=== PATIENT | female | born 1935 | race Caucasian/White ===

== ENCOUNTER → 2016-11-15 | Outpatient (CLI) | payer MEDICARE ==
[~2016-11-15] MED LIST: ACET1TAB17 PO; AMBI10TA PO; AMLO10TA2 PO; DARB10SYRN IV; DULC100C PO; EMLA2.5C TOP; ENAL10TA2 PO; ENAL20TA PO; ENAL5TAB PO; EPOG3000 IV; FLEXERIL PO; HYDR-3719 PO; KLOR1TAB73 PO; LACT10SO29 PO; LISI10TA4 PO; MEGA40SU PO; METO1TAB7 PO; MIRA3350 PO; NEPHTAB PO; NORCOTAB PO; NORV5TAB PO; PANT40TA2 PO; PRED5PAK PO; PROG1CAP2 PO; RENV2TAB PO; RIBA200T2 PO; ROZE8TAB16 PO; TORS20TA2 PO; TUMS500C PO; TYLE167L PO; VANC25SOL IV; VASO5TAB11 PO; VITA100067 PO; VITA2000 PO; VITA20008 PO; ZANTTAB9 PO; [UNRECOGNIZED DRUG - CODE] PO
--- NOTE | 2016-11-15 11:30 | REP ---
Clinical: Shortness of breath. Pleural effusions. Technique: PA and lateral. Comparison: 03/06/2016. Findings: Moderate bilateral pleural effusions with bibasilar infiltrates are appreciated. Chronic and postsurgical changes noted. Skeletal structures demonstrate osteopenia and degenerative changes. Impression: Moderate bilateral pleural effusions and bibasilar infiltrates. Signed by Nick Saez MD 11/15/2016 11:22 A
== END ==
LOC: M SMT 10:58
PROVIDERS: ATTEND Internal Medicine Nephrology
DX: J90 Pleural effusion, not elsewhere classified (principal)

== ENCOUNTER → 2016-11-22 | Outpatient (CLI) | payer MEDICARE ==
--- NOTE | 2016-11-22 17:06 | REP ---
Chest x-ray: Two views. History: Status post ultrasound-guided right thoracentesis. Comparison study: 11/15/2016. Findings: The right pleural effusion has been much improved post thoracentesis. There is no evidence of pneumothorax or other complication. A small to moderate left-sided pleural effusion is again seen essentially unchanged from the 11/15/2016 study. Cardiomegaly is observed. Post thoracotomy sutures are seen on the right and there is a vascular stent in the distribution of the brachial cephalic vein. An old healed proximal humeral fracture is seen Impression: No evidence of pneumothorax or other complication. Status post right thoracentesis Signed by Alfredo Espino MD 11/25/2016 10:47 A
--- NOTE | 2016-11-22 17:11 | REP ---
RIGHT THORACENTESIS: Procedure was performed by JO Klein under the direct supervision of Dr. Espino. The procedure along with its risks, benefits, and complications were discussed with the patient prior to the procedure. Informed consent was obtained both verbally and written. Procedural "time out" was performed in order to ensure the correct patient, procedure, and site. The right lung was prepped and draped in the usual sterile fashion. 3 mL of 1% Lidocaine were used for local anesthesia. Skin knick was made at the area of anesthesia. A centesis catheter was advanced into the pleural space under continuous negative pressure until serous fluid was aspirated. The needle was removed and the catheter was advanced. Approximately 620 mL of yellow fluid were removed. The catheter was then removed, hemostasis was achieved and a soft dressing was applied to the site. Post-procedural imaging revealed no immediate complications and a significant decrease in residual fluid within the lung. The patient will remain in interventional for 2 hours of post procedural observation and as long as her vital signs are stable will be discharged home. Reviewed by JO Ngo 11/25/2016 10:17 AEdited and Signed by Alfredo Espino MD 11/25/2016 10:47 A
[2016-11-22 20:07] LABS: RBC PLEURAL FLUID < 10 (<10mm3 cells/uL); TNC PLEURAL FLUID 935 cells/uL (0-20)
[2016-11-22 20:11] LABS: BF DIFF IF INDICATED? YES (NO)
[2016-11-22 20:25] LABS: TOTAL PROTEIN, BODY FLUID 3.1 G/DL (NOT ESTABLISHED)
[2016-11-22 21:35] LABS: CC BF DIFF EXAM CYTOCENTRIFUGE
== END | disposition home or self-care (01) ==
LOC: M RADPRO 14:49
PROVIDERS: ATTEND Internal Medicine Nephrology
DX: J90 Pleural effusion, not elsewhere classified (principal); N18.6 End stage renal disease; I15.0 Renovascular hypertension; E83.119 Hemochromatosis, unspecified; D64.9 Anemia, unspecified; M81.0 Age-related osteoporosis without current pathological fracture; Z79.891 Long term (current) use of opiate analgesic; Z79.899 Other long term (current) drug therapy; Z99.81 Dependence on supplemental oxygen; Z99.2 Dependence on renal dialysis

== ENCOUNTER → 2016-11-29 | Outpatient (CLI) | payer MEDICARE ==
[2016-11-29 12:11] LABS: RBC PLEURAL FLUID 15 (<10mm3 cells/uL); TNC PLEURAL FLUID 534 cells/uL (0-20)
--- NOTE | 2016-11-29 12:12 | REP ---
TWO VIEW CHEST: Two views of the chest are performed status post left thoracentesis. There is no pneumothorax. There is significant decrease in left pleural fluid with mild residual. Mild left basilar atelectasis is seen. Pleural and parenchymal opacities in the right inferior thorax are unchanged. The remainder of the study is also unchanged. IMPRESSION: Significant improvement of left pleural effusion with mild residual. No pneumothorax, status post left thoracentesis. No change in the appearance of the right lung. Signed by Jaguar Murillo MD 11/29/2016 05:24 P
[2016-11-29 12:14] LABS: BF DIFF IF INDICATED? YES (NO)
[2016-11-29 13:30] LABS: CC BF DIFF EXAM CYTOCENTRIFUGE
--- NOTE | 2016-11-29 20:46 | REP ---
ULTRASOUND GUIDED LEFT THORACENTESIS: The procedure was performed under the direct supervision of Dr. Murillo. The risks and benefits of the procedure were explained to the patient and informed consent was obtained. The left pleural effusion was localized using ultrasound guidance. The skin was prepped and draped in a sterile fashion. 1% Lidocaine was used as a local anesthetic. An 8-Occitan [id number] catheter was inserted using trocar technique. 920 mL of light red colored fluid was withdrawn and sent to the lab. The patient tolerated the procedure well and there were no immediate complications. After the appropriate amount of monitored convalesce the patient was discharged from the department. Reviewed by JO Lo 12/02/2016 04:37 PEdited and Signed by Jaguar Murillo MD 12/02/2016 04:42 P
== END | disposition home or self-care (01) ==
LOC: M RADPRO 10:26
PROVIDERS: ATTEND Internal Medicine Nephrology
DX: J90 Pleural effusion, not elsewhere classified (principal); N18.6 End stage renal disease; R06.02 Shortness of breath; Z79.899 Other long term (current) drug therapy
CPT/HCPCS: 32555; 82465; 82945; 83986; 84157; 87070; 87205; 89051; G0463

== ENCOUNTER 2016-12-22 09:53 | Inpatient (IN) | payer MEDICARE ==
[~2016-12-22] VITALS: Ht 152.4 cm; Wt 37.5 kg
[~2016-12-22 09:53] MED LIST changes: -LISI10TA4 PO; -MEGA40SU PO; -METO1TAB7 PO; -PANT40TA2 PO; -VITA100067 PO
[2016-12-22] MEDS ORDERED: VITA100067 PO (10:02)
[2016-12-22 11:08] LABS: ADD MORPHOLOGY? YES; BASO % 0.5 % (0.0-1.0); EOS # 0.1 K/mm3 (0.0-0.50); EOS % 1.1 % (0.0-3.0); LARGE UNSTAINED CELL # 0.1 K/mm3 (0.0-0.4); LARGE UNSTAINED CELL % 1.5 % (0.0-4.0); LYMPH # 1.4 K/mm3 (1.5-4.5); LYMPH % 24.4 % (24.0-44.0); MEAN CORPUSCULAR HEMOGLOBIN 27.5 pg (27.0-33.0); MEAN CORPUSCULAR HGB CONC 29.6 g/dl (32.0-36.5); MEAN CORPUSCULAR VOLUME 92.8 fl (80.0-96.0); MONO # 0.2 K/mm3 (0.0-0.8); MONO % 4.5 % (0.0-5.0); NEUTROPHILS # 3.6 K/mm3 (1.8-7.7); NEUTROPHILS % 68.1 % (36.0-66.0); PLATELET COUNT, AUTOMATED 164 k/mm3 (150-450); RED CELL DISTRIBUTION WIDTH 19.9 % (11.5-14.5); WHITE BLOOD COUNT 5.3 K/mm3 (4.0-10.0)
[2016-12-22 11:35] LABS: CALCIUM LEVEL 8.4 MG/DL (8.8-10.2); CREATININE FOR GFR 3.19 MG/DL (0.55-1.02); GLOMERULAR FILTRATION RATE 14.9 (>32); POTASSIUM SERUM 4.4 MEQ/L (3.5-5.1)
[2016-12-22 11:44] LABS: ANISOCYTOSIS 2+; HYPOCHROMASIA 2+; POLYCHROMASIA 1+
[2016-12-22] MEDS ORDERED: MEGA40SU PO (12:07)
[2016-12-22] MEDS ORDERED: PANT40TA2 PO (12:07)
[2016-12-22] MEDS ORDERED: LISI10TA4 PO (12:07)
[2016-12-22] MEDS ORDERED: METO1TAB7 PO (12:07)
[2016-12-22] MEDS ORDERED: DEXTROSE 50% 50 ML SYRINGE IV STA (12:18)
[2016-12-22] MEDS ORDERED: DEXTROSE 50% 50 ML SYRINGE As Ordered ONE (12:19)
--- NOTE | 2016-12-22 13:12 | REP ---
AP PORTABLE CHEST: 12/22/2016. Clinical history: Dyspnea, cough. Comparison: Chest x-ray 11/29/2016, 11/22/2016, 11/15/2016. Findings: AP portable chest shows cardiomegaly with left atrial and ventricular enlargement. There are bilateral effusions, larger left than right. The right may have loculations and fluid in the major fissure. Effusion at the left base could obscure infiltrate. There is compressive atelectatic change related to the effusion. There is vascular congestion with some interstitial edema suggested. Old post-traumatic changes from the surgical neck fracture of the right humerus are again seen. Tortuous ectatic calcified aorta as before. A vascular stent in the upper chest midline is again seen. Postoperative changes also noted in the right hemithorax unchanged from previous study. Impression: 1. Cardiomegaly with left atrial and ventricular enlargement, vascular redistribution, interstitial edema with bilateral pleural effusions, left greater than right. Compressive atelectasis in the bases noted. Superimposed infiltrates difficult to exclude. Signed by Nicolas Nielson MD 12/22/2016 06:08 P
[2016-12-22] MEDS ORDERED: LACTULOSE 20 GM/30 ML SYRUP UD PO PRN (14:00)
[2016-12-22] MEDS ORDERED: ONDANSETRON 4 MG TAB (S0181) PO PRN (14:00)
[2016-12-22] MEDS ORDERED: MEGESTROL SUSP 400 MG/10 ML UDC PO PRN (14:00)
[2016-12-22] MEDS ORDERED: ACETAMINOPHEN TAB 650MG DOSE (2X325MG) PO PRN (14:00)
[2016-12-22] MEDS ORDERED: ONDANSETRON 4MG/2ML VIAL (J2405) IV PRN (14:00)
--- NOTE | 2016-12-22 14:37 | HPEPDOC ---
Medical History and Physical Date of Admission Dec 22, 2016 at 13:49 History and Physical HISTORY AND PHYSICAL Date of admission: 12/22/2016 PCP: Dr. Valadez Chief complaint: Shortness of breath and hypoxemia HPI: 81-year-old female with end-stage renal disease on hemodialysis, hypertension, chronic hepatitis C, osteoporosis, rheumatoid arthritis, hemochromatosis, chronic diastolic dysfunction, moderately severe pulmonary hypertension who presents to the emergency department with cough, shortness of breath, and desaturations. Her reports that they winter in [place], that she had a very tough year this past winter. He states that she had her right hip revised in [place] in April, and then in July, she had an episode where clinically she appeared to have had a stroke, but they did not see any evidence of stroke on imaging. He states that after that, she required a lot of rehabilitation, and is now wheelchair bound, where prior to this she was able to walk around with a walker. He states that she got out of rehabilitation in August, but then in October, she fell out of bed and cracked her head open and required shanika to close it. They then remained in [place] while her finished chemotherapy for his own lung cancer. They returned to the [facility] around November 19, and she has had [facility] since then. He states that a couple days ago, she started coughing, and today she told him that she could not breathe. He said that she chronically wears 2 L of oxygen at home, and when he checked her saturations they were only 90-91, and he states they're usually closer to 95. They called Dr. Moss, who was the on-call physician, and she recommended that they come to the emergency room. The patient initially did not want to come, so the turned her oxygen up to 3 L, but he was eventually able to convince her to come to the emergency department. In the ER, they noticed that she has pleural effusions bilaterally. The states that this has become an issue more recently, and she had to have them drained in [place] in October, and then again here on November 29. He states that she has not missed any dialysis appointments, but he does note that she did not receive her morning blood pressure medications today. Past medical history: 81-year-old female with end-stage renal disease on hemodialysis, hypertension, chronic hepatitis C, osteoporosis, rheumatoid arthritis, hemochromatosis, chronic diastolic dysfunction, moderately severe pulmonary hypertension, recurrent pleural effusion, chronic right lower extremity edema Past surgical history: Renal transplant, left arm fistula, BTL, tonsillectomy, left SOTERO, right femur fracture status post pinning with revision in April 2016 Family history: Lymphoma, hypertension, diabetes mellitus Social history: The patient is currently and lives with her . They winter in [place], but lives in [place] when they are up here. 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 Allergies: Pregabalin Review of systems: General: Positive for chills, negative for fever Eyes: Negative for vision changes ENT: Negative for sore throat and nose bleed Cardiovascular: Negative for chest pain Respiratory: Positive for cough and shortness of breath GI: Negative for nausea, vomiting, diarrhea, constipation Musculoskeletal: Negative for neck and back pain Skin: Negative for rash Neuro: Negative for headaches, dizziness, numbness, tingling Psych: Positive for depression and suicidal ideation, however the patient denies any specific plan Endocrine: Positive for chronic anuria Heme: Positive for bruising, negative for bleeding Home meds: See below Physical exam: Vital signs: Vital Sign - Last 24 Hours 12/22/16 12/22/16 12/22/16 12/22/16 09:53 10:29 10:53 11:06 Temp 97.5 Pulse 86 80 Resp 18 B/P (MAP) 174/92 (119) 171/95 (120) Pulse Ox 90 97 O2 Delivery Nasal Cannula O2 Flow Rate 3.0 12/22/16 12/22/16 12/22/16 12/22/16 11:08 11:21 11:23 11:36 Pulse 82 78 B/P (MAP) 159/99 (119) 168/90 (116) Pulse Ox 97 99 12/22/16 12/22/16 12/22/16 12/22/16 11:38 11:51 11:53 12:06 Pulse 78 76 B/P (MAP) 169/98 (121) 167/102 (123) Pulse Ox 98 98 12/22/16 12/22/16 12/22/16 12/22/16 12:08 12:21 12:23 12:36 Pulse 88 82 B/P (MAP) 162/87 (112) 186/101 (129) Pulse Ox 98 99 812/22/16 12/22/16 12:38 12:51 12:53 Pulse 86 80 B/P (MAP) 198/104 (135) Pulse Ox 93 97 Gen.: asleep and appears listless at first but when you speak to her, she easily arouses and answers all questions approprioately, acute distress, cachectic Eyes: Extraocular movements intact, normal sclera ENT: Moist mucous membranes Cardiovascular: RRR, no murmurs rubs or gallops Lungs: clear to auscultation in the apices anteriorly but diminished at bases Abdomen: Soft, NT/ND, normal BS Extremities: No peripheral edema of LLE, 2+ edema of RLE, very TTP Neuro: alert and oriented 3, normal speech, no focal deficits Psych: Normal mood with congruent affect Labs and radiology: See below BMP is unremarkable other then being consistent with chronic renal failure Hemoglobin 10.9 Chest x-ray shows bilateral pleural effusions, left greater than right, and is unable to exclude superimposed infiltrates Assessment and plan: 81-year-old female with end-stage renal disease on hemodialysis, hypertension, chronic hepatitis C, osteoporosis, rheumatoid arthritis, hemochromatosis, chronic diastolic dysfunction, moderately severe pulmonary hypertension who presents to the emergency department with cough, shortness of breath, and desaturations. She is admitted with recurrent bilateral pleural effusions. 1. Recurrent bilateral pleural effusions: The patient has had these drained in both October and November. At this time, we will consult Dr. Armijo, for evaluation of potential Pleurx catheter. Patient is currently stable on 3 L of oxygen. 2. Shortness of breath, cough, hypoxemia: I think this is all secondary to her bilateral pleural effusions. Although the chest x-ray states that they cannot exclude superimposed infiltrate, she has a normal white count and is afebrile. 3. Accelerated hypertension: tells me that the patient has missed all of her morning medications. He states that her blood pressure is usually very controlled. We will give the first dose now of her home medications and resume her on her normal schedule. Continue home Norvasc, NERI inhibitor, beta brain. 4. End-stage renal disease on hemodialysis: We appreciate the help of Dr. Dang with continuing her dialysis. Continue home Renvela. 5. Depression and suicidal ideation: The patient tells me that she is depressed and has even considered ending her own life. However, she states that she does not have any specific plan. I have spoken to Dr. Gamez of psychiatry, who has agreed to see her in consultation. 6. Chronic hepatitis C: The patient follows with Dr. Penn for this. states that she has received the medication for cure, but they have not been repeat testing to see if it worked. Continue home lactulose. 7. Chronic diastolic CHF: As the patient no longer makes any urine, this is currently managed by dialysis. Last echo was October 2015 and showed diastolic dysfunction as well as moderately severe pulmonary hypertension, moderately severe tricuspid regurg, moderately severe mitral regurg. 8. Chronic anemia: Related to end-stage renal disease: Baseline hemoglobin appears to be 9-10s. She is currently at baseline. DVT prophylaxis: Heparin Dispo: admit as inpatient to the service of Dr. Jackson. Per the , he would like to try to keep caring for her in the home, but he states that he currently needs more help. We will consult patient family services. CODE STATUS: Full code Vital Signs Vital Signs Date Time Temp Pulse Resp B/P (MAP) Pulse Ox O2 Delivery O2 Flow Rate FiO2 12/22/16 12:53 80 97 12/22/16 12:51 198/104 (135) 12/22/16 09:53 97.5 18 Nasal Cannula 3.0 Laboratory Data Labs 24H Laboratory Tests 2 12/22/16 10:57: White Blood Count 5.3, Red Blood Count 3.96L, Hemoglobin 10.9L, Hematocrit 36.8 , Mean Corpuscular Volume 92.8, Mean Corpuscular Hemoglobin 27.5, Mean Corpuscular Hemoglobin Concent 29.6L, Red Cell Distribution Width 19.9H, Platelet Count 164, Neutrophils (%) (Auto) 68.1H, Lymphocytes (%) (Auto) 24.4, Monocytes (%) (Auto) 4.5, Eosinophils (%) (Auto) 1.1, Basophils (%) (Auto) 0.5, Neutrophils # (Auto) 3.6, Lymphocytes # (Auto) 1.4L, Monocytes # (Auto) 0.2, Eosinophils # (Auto) 0.1, Basophils # (Auto) 0.0, Large Unclassified Cells % 1.5 , Large Unclassified Cells # 0.1, Platelet Estimate NORMAL, Polychromasia 1+, Hypochromasia 2+, Anisocytosis 2+, Macrocytosis 1+, Anion Gap 9, Glomerular Filtration Rate 14.9L, Blood Urea Nitrogen 31H, Creatinine 3.19H, Sodium Level 139, Potassium Level 4.4, Chloride Level 101, Carbon Dioxide Level 29, Calcium Level 8.4L, Total Creatine Kinase 39, Creatine Kinase MB 1.8, Creatine Kinase MB Relative Index 4.61H, Troponin I 0.09 12/22/16 12:48: Bedside Glucose (Misc Panel) 84 CBC/BMP Laboratory Tests 12/22/16 10:57 Red Blood Count 3.96 L, Mean Corpuscular Volume 92.8, Mean Corpuscular Hemoglobin 27.5, Mean Corpuscular Hemoglobin Concent 29.6 L, Red Cell Distribution Width 19.9 H, Neutrophils (%) (Auto) 68.1 H, Lymphocytes (%) (Auto ) 24.4, Monocytes (%) (Auto) 4.5, Eosinophils (%) (Auto) 1.1, Basophils (%) ( Auto) 0.5, Neutrophils # (Auto) 3.6, Lymphocytes # (Auto) 1.4 L, Monocytes # ( Auto) 0.2, Eosinophils # (Auto) 0.1, Basophils # (Auto) 0.0, Calcium Level 8.4 L , Total Creatine Kinase 39 Home Medications Scheduled Amlodipine Besylate (Amlodipine Besylate) 10 Mg Tab, 10 MG PO DAILY Lisinopril (Lisinopril) 10 Mg Tab, 10 MG PO BID Metoprolol Succinate (Metoprolol Succinate ER) 50 Mg Tab, 50 MG PO DAILY Pantoprazole Sodium (Pantoprazole Sodium) 40 Mg Tab, 40 MG PO QHS Sevelamer Carbonate (Renvela) 800 Mg Tab, 1,600 MG PO WM Vitamin D (Vitamin D) 1,000 Unit Cap, 1,000 UNIT PO DAILY Scheduled PRN Acetaminophen/Hydrocodone (Hydrocodone/Acetaminophen 10-325 mg) 1 Tab Tab, 1 TAB PO Q4H PRN for PAIN Lactulose (Lactulose) 10 Gm/15 Ml Mary, 10 ML PO DAILY PRN for CONSTIPATION Megestrol Acetate (Megace Oral) 40 Mg/Ml Ivana, 400 MG PO DAILY PRN for APPETITE Zolpidem Tartrate (Ambien) 10 Mg Tab, 10 MG PO QHS PRN for INSOMNIA Allergies Coded Allergies: Pregabalin (Unverified Allergy, Unknown, TREMORS, 03/06/16) NANCY JACKSON Dec 22, 2016 14:37
[2016-12-22] MEDS: amLODIPine 10 MG TAB PO SCH (14:39)
[2016-12-22] MEDS: METOPROLOL SUCC (TopROL XL) 50MG **XL** TAB PO SCH (14:40)
[2016-12-22] MEDS: LISINOPRIL 10 MG TAB PO SCH ×2 (14:40→22:02)
[2016-12-22] MEDS ORDERED: LABETALOL HCL 100 MG/20 ML VIAL IV SCH ×2 (15:00→17:38)
--- NOTE | 2016-12-22 15:44 | CR ---
DATE OF CONSULTATION: 12/22/2016 REQUESTING PHYSICIAN: Dr. Brigette Jackson CONSULTING PHYSICIAN: Elizabeth Dang MD REASON FOR CONSULTATION: Management of end-stage renal disease, hemodialysis, and volume overload. CHIEF COMPLAINT: The patient presented to the emergency room with worsening shortness of breath and lower extremity edema. HISTORY OF PRESENT ILLNESS: Kiana Hi is an 81-year-old female with past medical history of end-stage renal disease on hemodialysis Friday, history of recurrent left-sided pleural effusion requiring pleural tap, multiple other comorbidities as mentioned below. The patient presented to the emergency room with worsening shortness of breath and lower extremity edema. The patient was dialyzed yesterday according to her regular schedule, but she reported that despite dialysis, her shortness of breath is not better. Initial evaluation in the emergency room, including the chest x-ray, showed the patient had left-sided pleural effusion, and the patient was also found to have her blood pressures in 200 systolic. The patient reported that she has not taken her blood pressure medications today morning so far. The patient is being admitted to the hospital for further management of her fluid overload and left-sided pleural effusion. Nephrology service was called for further help in the management of end-stage renal disease and hemodialysis and to evaluate if the patient needs hemodialysis today emergency. When I saw the patient, she was in no apparent distress. She was stable on the nasal cannula. However, her blood pressure is still high in 200s, and she has not received her a.m. medication so far. PAST MEDICAL HISTORY: The patient has past medical history of end-stage renal disease on hemodialysis TTS, longstanding high blood pressure, anemia, history of hepatitis C in the past, osteoporosis, recurrent pleural effusion, rheumatoid arthritis, history of melanoma and resection from right thigh, hemochromatosis, diastolic congestive heart failure. 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 ALLERGIES: The patient is allergic to LYRICA. FAMILY HISTORY: No family history of end-stage renal disease requiring hemodialysis. Her mother had lymphoma. The patient currently lives with her . There is no history of illicit drug abuse, alcohol abuse, or smoking. SOCIAL HISTORY: As mentioned above, the patient lives with her , and there is no history of illicit drug abuse. REVIEW OF SYSTEMS: CONSTITUTIONAL: The patient denies any fevers, chills, rigors. EYES: She denies any blurry vision or double vision. EARS, NOSE, AND THROAT (ENT): She denies any dysphagia, odynophagia, or ear discharge. CARDIOVASCULAR: The patient reports lower extremity edema. She denies any chest pain or palpitation. RESPIRATORY: The patient reports shortness of breath and cough, but she denies any fever. GASTROINTESTINAL (GI): She denies any pain abdomen, constipation, or diarrhea. GENITOURINARY: She denies any dysuria, hematuria. MUSCULOSKELETAL: The patient reports severe pain in the lower extremities and lower extremity edema.. CENTRAL NERVOUS SYSTEM (OSTEOLOGY TEACHER): There is no history of strokes or seizures. PSYCHIATRIC: The patient denies any history for depression or anxiety. HEMATOLOGICAL AND ONCOLOGICAL: The patient reports history of anemia secondary to end-stage renal disease and history of melanoma in the past. ENDOCRINE: The patient reports secondary hyperparathyroidism. There is no history of diabetes, hyperthyroidism, or hypothyroidism. All other review of systems is negative. PHYSICAL EXAMINATION: GENERAL: The patient is awake, alert, oriented times two, drowsy, and sleepy at this time, laying in bed, in no apparent distress. VITAL SIGNS: Temperature is 97.5 degrees Fahrenheit, blood pressure is 201/112, pulse is 80, respiratory rate of 18, saturating 98% on nasal cannula. The patient's weight is 42.7 kg. HEAD AND NECK EXAMINATION: Extraocular muscles intact. Pupils equally round and reactive to light. Mucous membranes are moist. Neck is supple. There is mildly elevated jugular venous distention (JVD). CARDIOVASCULAR: S1, S2. Regular rate. No murmur, rub, and gallop. RESPIRATORY: The patient has decreased breath sounds in bilateral bases. Mild crepitations on the left middle zone with deep inspiration and decreased vocal resonance on the left base, as well. ABDOMEN: Is soft, positive bowel sounds, nontender. No ascites. No organomegaly. MUSCULOSKELETAL: The patient has 2+ pitting edema of the bilateral lower extremities with mild erythema of the bilateral lower extremities and severe tenderness of legs to deep palpation. CENTRAL NERVOUS SYSTEM (OSTEOLOGY TEACHER): The patient is slightly drowsy and obtunded. She follows few commands and moves her upper extremities. SKIN: The patient has erythema of the legs bilaterally, and she has an ulcer which is covered with a dressing on the left leg. LYMPH NODE: No significant cervical, axillary, or inguinal lymphadenopathy. LABORATORY REVIEW: CBC showed a WBC of 5.3, hemoglobin 10.9, platelets are 164. BMP showed sodium 139, potassium 4.4, chloride 101, bicarbonate 29, BUN 31, creatinine is 3.1, calcium 8.4, troponin 0.09. IMAGING: A chest x-ray done today morning showed cardiomegaly with left atrial and ventricular enlargements, vascular congestion, and bilateral pleural effusion left greater than right. CURRENT INPATIENT MEDICATIONS: The patient's inpatient medications include Tylenol as needed, amlodipine 10 mg daily, heparin 5000 units subcutaneous every 8 hours, lactulose 10 mL by mouth daily as needed constipation, lisinopril 10 mg by mouth twice a day, metoprolol 50 mg by mouth daily, Zofran as needed, percocet one tablet every 4 hours as needed moderate pain, Protonix 40 mg by mouth daily, Renvela 1600 mg by mouth with meals, vitamin D 1000 units daily, Ambien 10 mg nightly as needed insomnia. ASSESSMENT: An 81-year-old female with past medical history of end-stage renal disease on hemodialysis, chronic longstanding hypertension, recurrent pleural effusion, admitted this time because of hypertensive urgency and shortness of breath secondary to pleural effusion. PLAN: 1. End-stage renal disease on hemodialysis. The patient's regular dialysis days are Friday, , Friday. She was dialyzed yesterday according to her regular schedule. She does have mild congestion on the chest x-ray. However, there is no urgency to emergently hemodialyze the patient today. The patient will be dialyzed tomorrow, and we shall try to remove about 3-4 kg of fluid as tolerated by her blood pressure. 2. Recurrent left-sided pleural effusion. The patient has been receiving intermittent left pleural taps. The patient needs to be evaluated by CT surgery for possible placement of a PleurX catheter for intermittent left pleural tapping. We shall try to do more ultrafiltration, as well, to help improve the recurrent pleural effusion on the left side. 3. Hypertensive urgency. The patient has not received her home medications. I have talked to the pharmacy to make sure that the patient takes her missed medication today morning, which includes lisinopril 10 mg by mouth twice a day, metoprolol 50 mg by mouth daily, and amlodipine 10 mg by mouth daily. I have also ordered a dose of labetalol 10 mg IV every 6 hours as needed for systolic blood pressure more than 170. 4. Chronic kidney disease/mineral bone disease. Continue Renvela 1600 mg by mouth three times a day with meals. 5. Anemia in end-stage renal disease. The patient's hemoglobin is 10.9, which is acceptable at this time. She will be given a dose of Aranesp 100 mcg IV with hemodialysis tomorrow. Thank you for involving us in the care of this patient. We shall be happy to follow the patient along with you tomorrow morning. Plan of care was discussed with the hospitalist, Dr. Brigette Jackson. JV
[2016-12-22 17:02] VITALS: BP 137/66
[2016-12-22] MEDS: VITAMIN D 1,000 INTERNATIONAL UNITS TABLET PO SCH (17:40)
[2016-12-22] MEDS: PERCOCET 5MG/325MG TAB PO PRN ×2 (17:40→21:02)
[2016-12-22] MEDS: HEPARIN SOD (PORCINE) 5000 UNITS/ML VIAL SC SCH ×2 (17:40→21:54)
--- NOTE | 2016-12-22 18:11 | ECGEPIP ---
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
[2016-12-22] MEDS: (RENVELA) SEVELAMER **CARBONate** 800 MG TAB PO SCH (18:33)
[2016-12-22] MEDS: SERTRALINE HCL 25 MG TABLET PO SCH (18:33)
[2016-12-22 19:53] VITALS: BP 132/71
--- NOTE | 2016-12-22 20:30 | REPUSA ---
CLINICAL HISTORY: Pleural effusions with questionable underlying malignancy. TECHNIQUE: Multiple axial, coronal, sagittal CT images were obtained through chest without IV contra st material. COMMENTS: There is a large left pleural effusion. It appears to be layering and is not loculated. Consolidati on noted in the left lung base most compatible with atelectasis also pneumonia cannot be totally excl uded. There is a small to moderate sized right pleural effusion noted. Also appears to be layering. Right basilar infiltration noted most compatible with atelectasis. There is mass like consolidatio n noted in the right middle lobe containing air bronchograms, malignancy is not excluded. There is b ibasilar fibronodular scarring noted associated with calcification. There are also some scattered ca lcifications noted in the right and left lungs. The heart is severely enlarged. Diffuse coronary calcifications are present. Dense mitral valve jelena cifications are present. The thoracic aorta is mildly dilated. The arch measures up to 3.2 cm in cr oss section. Ascending aorta measures up to 3.7 cm in cross section. There is diffuse abdominal ascites noted. There is diffuse mesenteric swelling and infiltration. The liver appears lobulated consistent with cirrhosis. A note is made of moderate to severe compression fracture deformity involving L1 vertebral body. The re are mild to moderate compression deformities involving T8, T9 and T11 vertebral bodies. There is also evidence of severe compression fracture involving T2 vertebral body. There is severe arthritis involving the right glenohumeral joint noted incidentally. Multilevel degenerative changes are seen involving the thoracic spine. Scattered calcifications are seen involving the aorta and visualized ma courtney branches compatible with atherosclerosis. IMPRESSION: 1. Large left pleural effusion. Consolidation at the left lung base. 2. Small to moderate right pleural effusion. 3. Mass like consolidation noted in the right middle lobe containing air bronchograms, malignancy is not excluded. 4. Diffuse abdominal ascites. 5. Compression fractures of T2, T8, T9, T11 and L1 vertebral bodies. 6. Additional findings as above.
[2016-12-22 21:00] VITALS: BP 137/72
[2016-12-22] MEDS: LABETALOL HCL 100 MG/20 ML VIAL IV SCH (21:00)
[2016-12-22 21:20] LABS: ALBUMIN 1.5 GM/DL (3.2-5.2); ALBUMIN/GLOBULIN RATIO 0.31 (1.00-1.93); BILIRUBIN,TOTAL 0.4 MG/DL (0.2-1.0); CALCIUM LEVEL 8.4 MG/DL (8.8-10.2); CREATININE FOR GFR 3.6 MG/DL (0.55-1.02); GLOMERULAR FILTRATION RATE 12.9 (>32); PHOSPHORUS LEVEL 3.2 MG/DL (2.5-4.9); POTASSIUM SERUM 4.4 MEQ/L (3.5-5.1); TOTAL PROTEIN 6.3 GM/DL (6.4-8.2)
[2016-12-22] MEDS: zolPIDEM TARTRATE 10MG TAB PO PRN (22:02)
[2016-12-22] MEDS: PANTOPRAZOLE 40MG TAB (PROTONIX) PO SCH (22:02)
[2016-12-23] VITALS (8 sets, daily range): BP systolic 107–152; BP diastolic 61–84; O2SAT 96
[2016-12-23] MEDS: LABETALOL HCL 100 MG/20 ML VIAL IV SCH ×2 (04:00→09:00)
[2016-12-23] MEDS ORDERED: LEVALBUTEROL 1.25 MG/0.5 ML CONCENTRATE NEB NEB PRN (04:45)
[2016-12-23 04:57] LABS: ADD MANUAL DIFFER YES; MEAN CORPUSCULAR HEMOGLOBIN 27.7 pg (27.0-33.0); MEAN CORPUSCULAR HGB CONC 29.9 g/dl (32.0-36.5); MEAN CORPUSCULAR VOLUME 92.8 fl (80.0-96.0); PLATELET COUNT, AUTOMATED 168 k/mm3 (150-450); RED CELL DISTRIBUTION WIDTH 19.9 % (11.5-14.5); WHITE BLOOD COUNT 7.3 K/mm3 (4.0-10.0)
[2016-12-23 04:59] LABS: ALBUMIN 1.3 GM/DL (3.2-5.2); ALBUMIN/GLOBULIN RATIO 0.28 (1.00-1.93); BILIRUBIN,TOTAL 0.3 MG/DL (0.2-1.0); CALCIUM LEVEL 8.3 MG/DL (8.8-10.2); CREATININE FOR GFR 3.72 MG/DL (0.55-1.02); GLOMERULAR FILTRATION RATE 12.4 (>32); MAGNESIUM LEVEL 2.2 MG/DL (1.8-2.4)
[2016-12-23 05:34] LABS: ANISOCYTOSIS 2+; HYPOCHROMASIA 3+
[2016-12-23] MEDS: HEPARIN SOD (PORCINE) 5000 UNITS/ML VIAL SC SCH ×3 (06:23→22:21)
--- NOTE | 2016-12-23 07:16 | CR ---
DATE OF CONSULTATION: 12/22/2016 Patient seen at the request of Dr. Jackson of the hospitalist service for recurrent pleural effusions. 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 She also has known hypertension, osteoporosis, diastolic dysfunction with moderately severe pulmonary hypertension and a history of chronic hepatitis C, which was treated by Dr. Penn, with what looks to be a complete cure. 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 She recovered full function after a period of rehabilitation. Evidently, imaging did not show any evidence of an infarct, but it is certainly clear that she had a neurologic event, i.e., a stroke or a RIND or reversible ischemic neurologic deficit. She hit her head and required stitches. After a period of rehabilitation, she was able to ambulate with a walker. In [place], she was also noted to have pleural effusions on both sides, which were tapped sometime in September. Her pleural effusion recurred on 11/29/2016 and then underwent a bilateral thoracentesis. See discussion below for results. However, over the last 2 weeks, she has been having increasing coughing but no sputum production. She does not complain of fever, chills or sweats. She states that her weight has remained fairly stable going up and down with dialysis. There is no dysphagia. Although, in the last 24 hours, she has had a decreased appetite. She feels "constricted" when taking a deep breath over the last few days. She has chronic leg edema thought to be secondary to her renal failure. PAST MEDICAL HISTORY: 1. End-stage renal disease on hemodialysis. 2. Hypertension. 3. Chronic hepatitis C, treated. 4. Osteoporosis. 5. Rheumatoid arthritis. 6. Hemochromatosis. 7. Chronic diastolic dysfunction. 8. Severe pulmonary hypertension. 9. Recurrent pleural effusions. 10. History of melanoma. SURGICAL HISTORY: 1. Failed transplant but lasted for 28 years. 2. Left arm fistula. 3. Bilateral hip replacements with revision of the right hip this past winter in [place]. 4. Evidence of right lung wedge resection for a melanoma in the lung mass, which was negative by a right thoracotomy. 5. Chronic anemia. MEDICATIONS AT HOME: - amlodipine 10 mg every day - lisinopril 10 mg twice a day - metoprolol ER 50 mg every day - Protonix 40 mg nightly - sevelamer 800 mg every day - vitamin D 1000 mg every day - lactulose 10 mg as needed, constipation - Megace 400 mg as needed, decreased appetite - Vicodin 10/325 every 4 hours as needed, pain ALLERGIES: Listed as PREGABALIN, however patient denies having allergies to any medications. TRAVEL HISTORY: She has been to [place] and to the [facility] later [facility] and [facility]. EXPOSURES: No dogs, cats or birds at home. She thinks that she had a positive tuberculosis (TB) test in the past, but no tuberculosis exposure. 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 HABITS: Does not smoke, does not drink and no illicit drugs. REVIEW OF SYSTEMS: CONSTITUTIONAL: Without fever, chills, sweats or night sweats. EYES: Without diplopia. Without recent vision loss other than the episode this last winter in [place]. Without prior jaundice. MOUTH: Has her own teeth. RESPIRATORY: See history of present illness (HPI). CARDIAC: Has orthopnea but no paroxysmal nocturnal dyspnea. She is on chronic oxygen. She has chronic leg edema. GASTROINTESTINAL: Without nausea, vomiting, diarrhea. Does have constipation. Without melena, hematochezia or abdominal pain. GENITOURINARY: See HPI. End-stage renal failure and makes no urine. NEUROLOGIC: Can now move all her fingers and toes. Without paralysis or paresthesias. It sounds as if she did have a stroke this past winter in [place]. ENDOCRINE: Without diabetes. Without thyroid disease. LYMPHATICS: Without lumps and bumps in her neck, axilla or groin that she has noted. PSYCHIATRIC: Without pathological anxieties, depressions or psychoses. PHYSICAL EXAMINATION: A frail, elderly woman in no acute distress, lying comfortably in bed. VITAL SIGNS: Temperature is 99.0. Pulse 79 in a sinus rhythm. Respiratory rate is 18 without the use of accessory muscles. She is 98% saturated on 2 liters nasal cannula and her blood pressure is 137/66. EYES: Pupils equal, round and reactive to light. Extraocular movements intact. Sclerae nonicteric. NOSE: Without deformity. MOUTH: Shows her mucous membranes to be pink and moist. Lips and commissures without lesions. She has a number of missing teeth but they are in good repair. There is no thrush. HEAD: Is normocephalic. NECK: Is supple. There is no jugular venous distention. No subcutaneous emphysema. Trachea is midline. There is no lymphadenopathy or thyromegaly. She has 2+ carotid upstrokes and there are no carotid bruits. LUNGS: Show markedly decreased breath sounds on either side with a dull percussion note particularly on the left in the left hemithorax. She has some bronchophony in the left upper lobe additionally. CARDIAC EXAM: Without murmurs, clicks, gallops or rubs. I cannot feel her point of maximum impulse (PMI). S1, S2 are normal. ABDOMEN: Soft. Nontender. Bowel sounds are positive. There is no hepatomegaly. No costovertebral angle (CVA) tenderness. EXTREMITIES: Show 4+ pretibial edema. There is reddening of the right side. It is tender to touch. She states that this a chronic problem. NEUROLOGIC: Shows gross motor and gross sensation intact, along with gross II-XII intact. Gait of course is not tested. PSYCHIATRIC: Shows her to be awake and alert, oriented times three with appropriate mood and affect and conversational. She is a bit forgetful about her past medical history, particularly when in questioning her about her prior thoracotomy. INVESTIGATIONS: Her white count today is 5.3 with a hemoglobin and hematocrit of 10.9 and 36.8. Platelet count is 164 and differential shows 68% neutrophils, 24 % lymphocytes, 4% monocytes. There are no immature forms, no toxic granulations. Chemistries today show normal electrolytes with a BUN and creatinine of 31 and 3.19. She was dialyzed yesterday. Glucose is 64 with a calcium of 8.4. Troponin is 0.09. Her prior pleurocentesis done on 11/22/2016 and 11/29/2016 showed pHs that ranged between 7.6 and 7.7 with the effusions beings predominantly lymphocytic of 100-98%. Glucoses were normal at 97% and 87% respectively. Total protein was 3 but there is no total protein to compare it with. No LDH was done. On 11/22/2016, she had 935 nucleated cells and on 11/29/2016, she had 534 nucleated cells total. Her chest x-ray today, done portably, shows a large left-sided pleural effusion with some blunting of the right costophrenic angle. She is quite scoliotic. The film was markedly rotated to either side. It looks as though she has a stent in the innominate vein. I cannot be absolutely sure of that. Her last proper PA and lateral chest x-ray was done on 11/15/2016 and I also see staple lines two in number on the right side probably secondary to her wedge resections. She had pleural effusions then with the left being greater than the right. I can see the stent on the PA and lateral films with the stent being quite anterior on the lateral film, again making me think that this in the innominate vein. Her echocardiogram done on 11/09/2015 showed moderately severe mitral insufficiency with severe mitral annular calcification, mild aortic insufficiency, concentric left ventricular hypertrophy graded as mild, an estimated right ventricular systolic pressure of 50-55 mmHg with moderately severe tricuspid insufficiency. PLAN AND DISCUSSION: We really do not know why she has these recurrent pleural effusions at this point in time. She certainly has a history of melanoma in the past, however that is essentially ancient history and I would be surprised if there is a recurrence. Nonetheless, the last two pleural effusions have been predominantly lymphocytic near 100%. The conventional wisdom would indicate this is secondary to her renal failure. I will measure her albumin. She also has a history, at least in the medical record, of rheumatoid arthritis and I will check her rheumatoid factor. We will also undertake another echocardiogram as her pleural effusions could be cardiac in origin. There is no smoking history and I would not expect her to have lung cancer. There is no history of melena or hematochezia. In order to ascertain the cause of her pleural effusions, I will have x-ray undertake a pigtail catheter placement on the left side and measure all the salient labs for pleural fluid analysis. I will also undertake a CT scan of her tonight to look for the distribution of the pleural effusions, plus any other possible underlying malignancies. She is in no acute distress today, so I do not feel compelled to place a tube at this point in time. We will also measure JACOB in addition to the rheumatoid factor. JSD
[2016-12-23] MEDS: (RENVELA) SEVELAMER **CARBONate** 800 MG TAB PO SCH ×3 (07:54→17:06)
[2016-12-23 08:28] LABS: ABG BASE EXCESS 4.1 (-2.0-2.0); ABG HCO3 29.1 MEQ/L (22.0-26.0); ABG PARTIAL PRESSURE CO2 45.1 mmHg (35.0-45.0); ABG PARTIAL PRESSURE O2 70.4 mmHg (75.0-100.0); ABG STANDARD HCO3 28.1 MEQ/L (22.0-26.0); ABG TOTAL CO2 30.4 MEQ/L (23.0-31.0); ABG pH (ARTERIAL) 7.427 UNITS (7.350-7.450)
[2016-12-23] MEDS: LEVALBUTEROL 1.25 MG/0.5 ML CONCENTRATE NEB NEB SCH ×3 (09:06→20:06)
[2016-12-23] MEDS: SERTRALINE HCL 25 MG TABLET PO SCH (09:10)
[2016-12-23] MEDS: VITAMIN D 1,000 INTERNATIONAL UNITS TABLET PO SCH (09:10)
[2016-12-23] MEDS: METOPROLOL SUCC (TopROL XL) 50MG **XL** TAB PO SCH (09:11)
[2016-12-23] MEDS: LISINOPRIL 10 MG TAB PO SCH ×2 (09:11→20:02)
[2016-12-23] MEDS: amLODIPine 10 MG TAB PO SCH (09:11)
[2016-12-23] MEDS: PERCOCET 5MG/325MG TAB PO PRN ×3 (10:39→20:02)
[2016-12-23] MEDS ORDERED: LIDOCAINE 1% MDV 20ML VIAL As Ordered ONE (13:04)
[2016-12-23 14:54] LABS: RBC PLEURAL FLUID < 10 (<10mm3 cells/uL); TNC PLEURAL FLUID 537 cells/uL (0-20)
--- NOTE | 2016-12-23 14:55 | IPN ---
DATE: 12/23/2016 SUBJECTIVE: The patient was seen and examined at the bedside today morning in the intensive care unit (ICU). She is actually progressive care unit (PCU) status but she currently has an intensive care unit (ICU) bed. Last 24 hour events were noted. The patient was examined by cardiothoracic (CT) surgery as well. I appreciate their recommendations. She is for placement of left sided pleural catheter. She is otherwise hemodynamically stable and saturating well on nasal cannula. Her blood pressure is improved with the home medications now. REVIEW OF SYSTEMS: The patient denies any fever, chills, rigors, headache, nausea, vomiting or chest pain. She does report mild shortness of breath. She denies any pain in the abdomen, constipation or diarrhea. The rest of the review of systems is negative. OBJECTIVE: VITAL SIGNS: Temperature is 98.1 degrees Fahrenheit. Blood pressure is 152/84, pulse is 73, respiratory rate of 18, saturating 94% on nasal cannula at 2 liters. Intake and output: Urine output is not recorded at this time. Weight on the bed scale is 44.6 kg. PHYSICAL EXAMINATION: GENERAL: The patient is awake, alert, oriented times two. Laying in bed. Currently on nasal cannula. No apparent distress. HEAD/NECK EXAM: Extraocular muscles intact. Pupils are equally round and reactive to light. Mucous membranes are moist. NECK: Supple. There is mildly elevated jugular venous distention (JVD). CARDIOVASCULAR: S1, S2. Regular rate. No murmur, rub or gallop. RESPIRATORY: The patient has decreased breath sounds and decreased vocal resonance on the left base and positive mild crepitations of deep respirations on the right base. ABDOMEN: Soft. Positive bowel sounds. Nontender. No ascites. No organomegaly. MUSCULOSKELETAL: The patient has 2+ edema of the right lower extremity and 1+ edema of the left lower extremities. She has a dressing on the left leg because of ulceration. There is no clubbing or cyanosis. 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 The patient is slightly drowsy. Otherwise, she follows commands. SKIN: The patient has erythema of the legs with tenderness and also on the left leg. Otherwise, no rashes. LABORATORY REVIEW: CBC showed a WBC of 7.3, hemoglobin 10.4, platelet count 168. BMP showed sodium of 139, potassium 5, chloride 102, bicarbonate 28, BUN 36, creatinine 3.72. IMAGING: CAT scan of the chest was done yesterday that showed a large left pleural effusion and consolidation at the left lung base. Small to moderate right pleural effusion and mask-like consolidation in the right middle lobe containing air bronchograms. Malignancy is not excluded. There was diffuse abdominal ascites and compression fractures of T2, T8, T9, T11, and L1 vertebral bodies. CURRENT INPATIENT MEDICATIONS: The patient's medications were all reviewed by me. Her blood pressure is better so I have stopped her labetalol. There is no other change in the medications today as compared with yesterday. ASSESSMENT: 81-year-old female with a past medical history of end stage renal disease on hemodialysis, chronic long-standing hypertension, recurrent pleural effusion, admitted this time because of hypertensive urgency, shortness of breath, and left sided pleural effusion. PLAN: 1. End stage renal disease on hemodialysis. The patient's regular days of dialysis are Friday, , Friday. She was dialyzed according to her schedule on Friday. No urgent need of hemodialysis today. She will be dialyzed tomorrow morning as per her regular schedule. 2. Recurrent left sided pleural effusion. The patient's CAT scan also confirmed that she has a large effusion at this time. The patient is going to get PleurX catheter placed by cardiothoracic surgery today. 3. Hypertension. Blood pressure is better. Continue Lisinopril 10 mg twice a day, metoprolol 50 mg daily, amlodipine 10 mg daily. Blood pressure is improved. I have stopped the IV labetalol as needed dose. 4. Anemia and end stage renal disease. The patient's hemoglobin is 10.4, which is acceptable at this time. She will get a dose of Aranesp with hemodialysis tomorrow. 5. Mass like consolidation in the right middle lobe. The patient is already being seen by CT surgery. Decision to do possible biopsy is as per CT surgical service.
[2016-12-23 14:56] LABS: LDH, BODY FLUID 97 U/L (NOT ESTABLISHED)
[2016-12-23 15:02] LABS: BF DIFF IF INDICATED? YES (NO)
--- NOTE | 2016-12-23 15:02 | REP ---
CHEST, TWO VIEWS: Two views of the chest are performed status post thoracentesis. No pneumothorax is seen. Bilateral infiltrates and effusions are again noted. Cardiomediastinal silhouette appears unchanged. IMPRESSION: No pneumothorax. Bilateral infiltrates and effusions again noted. Signed by Jaguar Murillo MD 12/24/2016 08:42 A
[2016-12-23 15:06] LABS: CC BF DIFF EXAM CYTOCENTRIFUGE
[2016-12-23 15:25] LABS: TOTAL PROTEIN, BODY FLUID 2.6 G/DL (NOT ESTABLISHED)
--- NOTE | 2016-12-23 16:48 | REP ---
ULTRASOUND GUIDED LEFT PIGTAIL CATHETER PLACEMENT: The procedure was performed by JO Moe under the direct supervision of Dr. Murillo. The procedure along with its risks, benefits, and complications were discussed with the patient prior to the procedure. Informed consent was obtained both verbally and written. The patient was identified in the ultrasound suite and placed in an upright seated position [facility] the [facility]. The left lung pleural space was evaluated via ultrasound. A moderate sized fluid collection was demonstrated. An appropriate site was chosen for needle entry and this area was marked, prepped, and draped in the usual sterile fashion. A procedural "time out" was performed to ensure that the correct patient, site and procedure were being performed. Local infiltrative anesthesia was achieved using 1% lidocaine. A small skin maria eugenia was made and an #8-Greek skater catheter was advanced through the ribs and into the pleural space until serous fluid was aspirated. The needle was removed and the catheter was advanced. Approximately 500 mL of yellow fluid was aspirated. The catheter was sutured to the skin and a soft dressing was applied to the site. The catheter was hooked up to a Pleur-evac system. The patient tolerated the procedure well and had no immediate complications. She was returned to the floor where she is under the supervision of Dr. Armijo. Reviewed by JO Ngo 12/23/2016 04:52 PEdited and Signed by Jaguar Murillo MD 12/24/2016 08:36 A
--- NOTE | 2016-12-23 16:52 | IPNPDOC ---
Date Seen The patient was seen on 12/23/16. Progress Note Hospitalist Progress Note Subjective: Patient has no significant complaints other than continuing to be cold Objective: Physical Exam: Vitals: Vital Sign - Last 24 Hours 12/22/16 12/22/16 12/22/16 12/22/16 17:02 17:22 17:30 17:40 Temp 99.0 Pulse 79 76 Resp 18 17 B/P (MAP) 137/66 (89) 137/66 Pulse Ox 98 97 O2 Delivery Nasal Cannula Nasal Cannula O2 Flow Rate 2.0 3.0 12/22/16 12/22/16 12/22/16 12/22/16 19:53 20:00 21:00 21:00 Temp 99.6 Pulse 77 72 Resp 18 B/P (MAP) 132/71 (91) 137/72 137/72 (93) Pulse Ox 96 98 O2 Delivery Nasal Cannula Nasal Cannula Nasal Cannula O2 Flow Rate 2.0 2.0 2.0 12/22/16 12/22/16 12/23/16 12/23/16 21:02 22:02 00:34 04:00 Temp 98.8 Pulse 72 62 Resp 20 16 B/P (MAP) 137/72 137/72 137/79 (98) 144/84 Pulse Ox 98 94 O2 Delivery Nasal Cannula Nasal Cannula O2 Flow Rate 2.0 2.0 12/23/16 12/23/16 12/23/16 12/23/16 04:05 08:00 08:00 09:00 Temp 99.3 98.1 Pulse 75 77 73 Resp 18 18 B/P (MAP) 144/84 (104) 152/84 (106) 152/84 Pulse Ox 95 94 O2 Delivery Nasal Cannula Nasal Cannula Nasal Cannula O2 Flow Rate 2.0 2.0 2.0 12/23/16 12/23/16 12/23/16 12/23/16 10:39 11:10 12:00 12:00 Temp 99.8 99.8 Pulse 75 66 Resp 18 18 B/P (MAP) 107/61 107/61 (76) Pulse Ox 98 95 O2 Delivery Nasal Cannula Nasal Cannula Nasal Cannula O2 Flow Rate 2.0 2.0 2.0 12/23/16 12/23/16 12/23/16 12/23/16 14:39 14:39 14:48 15:20 Pulse 67 65 54 Resp 18 20 16 B/P (MAP) 129/71 (90) 129/71 Pulse Ox 98 98 98 O2 Delivery Nasal Cannula Nasal Cannula Nasal Cannula Nasal Cannula O2 Flow Rate 2.0 2.0 2.0 2.0 12/23/16 12/23/16 16:00 16:00 Temp 98.3 Pulse 67 Resp 18 B/P (MAP) 120/64 (82) Pulse Ox 99 O2 Delivery Nasal Cannula Nasal Cannula O2 Flow Rate 2.0 2.0 Gen.: awake, alert, no acute distress, cachectic Eyes: Extraocular movements intact, normal sclera ENT: Moist mucous membranes Cardiovascular: RRR Lungs: clear to auscultation in the apices anteriorly but diminished at bases Abdomen: Soft, NT/ND, normal BS Extremities: No peripheral edema of LLE, 2+ edema of RLE, very TTP Neuro: alert and oriented 3, normal speech, no focal deficits Psych: Normal mood with congruent affect Labs and Imaging: Laboratory Tests 12/22/16 20:37 Calcium Level 8.4 L, Phosphorus Level 3.2, Aspartate Amino Transf (AST/SGOT) 31 , Alanine Aminotransferase (ALT/SGPT) 14, Lactate Dehydrogenase 195, Total Creatine Kinase 27, Alkaline Phosphatase 131 H, Total Bilirubin 0.4, Triglycerides Level 70, Cholesterol Level 90, Total Protein 6.3 L, Albumin 1.5 L 12/23/16 04:15 Calcium Level 8.3 L, Aspartate Amino Transf (AST/SGOT) 42 H, Alanine Aminotransferase (ALT/SGPT) 14, Alkaline Phosphatase 122 H, Total Bilirubin 0.3 , Total Protein 6.0 L, Albumin 1.3 L, Red Blood Count 3.75 L, Mean Corpuscular Volume 92.8, Mean Corpuscular Hemoglobin 27.7, Mean Corpuscular Hemoglobin Concent 29.9 L, Red Cell Distribution Width 19.9 H Assessment and Plan: 81-year-old female with end-stage renal disease on hemodialysis, hypertension, chronic hepatitis C, osteoporosis, rheumatoid arthritis, hemochromatosis, chronic diastolic dysfunction, moderately severe pulmonary hypertension who presents to the emergency department with cough, shortness of breath, and desaturations. She is admitted with recurrent bilateral pleural effusions. 1. Recurrent bilateral pleural effusions: The patient has had these drained in both October and November. Mangement and further work up per Dr. Armijo, whose help we greatly appreciate. Patient is currently stable on 3 L of oxygen. 2. Shortness of breath, cough, hypoxemia: I think this is all secondary to her bilateral pleural effusions. Although the chest x-ray states that they cannot exclude superimposed infiltrate, she has a normal white count and is afebrile. 3. Accelerated hypertension: Now controlled after restarting home medications. Continue home Norvasc, NERI inhibitor, beta brain. 4. End-stage renal disease on hemodialysis: We appreciate the help of Dr. Dang with continuing her dialysis. Continue home Renvela. 5. Depression and suicidal ideation: The patient tells me that she is depressed and has even considered ending her own life. However, she states that she does not have any specific plan. I have spoken to Dr. Gamez of psychiatry, who saw her in consultation; airline hostess is still pending, but he did tell me he recommended zoloft, which has been started. Sitter and precautions. 6. Chronic hepatitis C: The patient follows with Dr. Penn for this. states that she has received the medication for cure, but they have not been repeat testing to see if it worked. Continue home lactulose. 7. Chronic diastolic CHF: As the patient no longer makes any urine, this is currently managed by dialysis. Last echo was October 2015 and showed diastolic dysfunction as well as moderately severe pulmonary hypertension, moderately severe tricuspid regurg, moderately severe mitral regurg. Repeat echo pending. 8. Chronic anemia: Related to end-stage renal disease: Baseline hemoglobin appears to be 9-10s. She is currently at baseline. DVT prophylaxis: Heparin VS, I&O, 24H, Fishbone Vital Signs/I&O Vital Signs Date Time Temp Pulse Resp B/P (MAP) Pulse Ox O2 Delivery O2 Flow Rate FiO2 12/23/16 16:00 98.3 67 18 120/64 (82) 99 Nasal Cannula 2.0 I&O- Last 24 Hours up to 6 AM 12/23/16 05:59 Intake Total 480 ml Balance 480 ml Laboratory Data 24H LABS Laboratory Tests 2 12/22/16 20:37: Anion Gap 13, Glomerular Filtration Rate 12.9L, Blood Urea Nitrogen 35H, Creatinine 3.60H, Sodium Level 141, Potassium Level 4.4, Chloride Level 103, Carbon Dioxide Level 25, Calcium Level 8.4L, Phosphorus Level 3.2, Aspartate Amino Transf (AST/SGOT) 31, Alanine Aminotransferase (ALT/SGPT) 14, Lactate Dehydrogenase 195, Total Creatine Kinase 27, Alkaline Phosphatase 131H, Total Bilirubin 0.4, Triglycerides Level 70, Cholesterol Level 90, Total Protein 6.3L , Albumin 1.5L, Albumin/Globulin Ratio 0.31L, Rheumatoid Factor 16.9H 12/23/16 04:15: Anion Gap 9, Glomerular Filtration Rate 12.4L, Blood Urea Nitrogen 36H, Creatinine 3.72H, Sodium Level 139, Potassium Level 5.0, Chloride Level 102, Carbon Dioxide Level 28, Calcium Level 8.3L, Aspartate Amino Transf (AST/SGOT) 42H, Alanine Aminotransferase (ALT/SGPT) 14, Alkaline Phosphatase 122H, Total Bilirubin 0.3, Total Protein 6.0L, Albumin 1.3L, Albumin/Globulin Ratio 0.28L, Neutrophils 60, Lymphocytes (Manual) 31, Monocytes (Manual) 9H, Platelet Estimate NORMAL, Hypochromasia 3+, Anisocytosis 2+, Magnesium Level 2.2 12/23/16 08:19: Blood Gas Bicarbonate Standard 28.1H, Arterial Blood pH 7.427, Arterial Blood Partial Pressure CO2 45.1H, Arterial Blood Partial Pressure O2 70.4L, Arterial Blood Total CO2 30.4, Arterial Blood HCO3 29.1H, Arterial Blood Base Excess 4.1H , Arterial Blood Oxygen Saturation 93.5L 12/23/16 13:40: Body Fluid pH 7.579, Body Fluid pH Source PLEURAL, Body Fluid Neutrophils 2, Body Fluid Lymphocytes 85, Body Fluid Monocytes/Macrophages 13, Body Fluid Glucose Source PLEURAL, Body Fluid Glucose 129, Body Fluid Protein Source PLEURAL, Body Fluid Total Protein 2.6, Body Fluid Albumin Source PLEURAL, Body Fluid Albumin 0.8, Body Fluid LDH Source PLEURAL, Body Fluid Lactate Dehydrogenase 97, Body Fluid Amylase Source PLEURAL, Body Fluid Amylase 26, Body Fluid Cholesterol < 50, Body Fluid Cholesterol Source PLEURAL, Body Fluid Triglyceride Source PLEURAL, Body Fluid Triglycerides 5, Pleural Fluid Source PLEURAL, Pleural Fluid Color YELLOW, Pleural Fluid Appearance HAZY, Pleural Fluid RBC (Auto) < 10, Pleural Fluid Total Nucleated Cells 537H CBC/BMP Laboratory Tests 12/22/16 20:37 Calcium Level 8.4 L, Phosphorus Level 3.2, Aspartate Amino Transf (AST/SGOT) 31 , Alanine Aminotransferase (ALT/SGPT) 14, Lactate Dehydrogenase 195, Total Creatine Kinase 27, Alkaline Phosphatase 131 H, Total Bilirubin 0.4, Triglycerides Level 70, Cholesterol Level 90, Total Protein 6.3 L, Albumin 1.5 L 12/23/16 04:15 Calcium Level 8.3 L, Aspartate Amino Transf (AST/SGOT) 42 H, Alanine Aminotransferase (ALT/SGPT) 14, Alkaline Phosphatase 122 H, Total Bilirubin 0.3 , Total Protein 6.0 L, Albumin 1.3 L, Red Blood Count 3.75 L, Mean Corpuscular Volume 92.8, Mean Corpuscular Hemoglobin 27.7, Mean Corpuscular Hemoglobin Concent 29.9 L, Red Cell Distribution Width 19.9 H Microbiology Microbiology 12/23/16 Acid Fast Stain, Received Pending 12/23/16 Mycobacterial Culture, Received Pending 12/23/16 Fungal Smear, Received Pending 12/23/16 Fungal Culture, Received Pending 12/23/16 Gram Stain, Received Pending 12/23/16 Body Fluid Culture, Received Pending 12/23/16 Anaerobic Culture, Received Pending NANCY RODRIGUEZ Dec 23, 2016 16:52
[2016-12-23] MEDS: PANTOPRAZOLE 40MG TAB (PROTONIX) PO SCH (20:02)
--- NOTE | 2016-12-23 21:47 | ECHO ---
DATE OF PROCEDURE: 12/23/2016 REFERRING PHYSICIAN: Hira Armijo MD INDICATION: Congestive heart failure HEIGHT: 60 inches WEIGHT: 94 pounds DIMENSIONS: LV: 3.8 LV systolic 1.7 IVS: 0.8 LVPW: 0.8 RV: 2.5 LA: 3.3 Aortic root: 2.6 FINDINGS: The study is of good technical quality. Left ventricle is normal size and hyperdynamic contractility with estimated ejection fraction (EF) around 70%. I do not appreciate any segmental wall motion abnormalities. Left atrium is severely enlarged. Right ventricle is dilated and hypokinetic. Right atrium is at least mildly enlarged. Aortic valve is sclerotic, but it appears to have preserved mobility and three cusps. Mitral valve exhibits heavy degenerative abnormalities with very prominent mitral annular calcifications. I cannot rule out vegetations even though no obvious vegetations are seen. Tricuspid valve appears normal. Pulmonic valve was not well visualized. No pericardial effusion is noted. Inferior vena cava is normal size and appropriately collapses with respiration. Aortic root is normal. Aortic arch was not well visualized. Abdominal aorta appears normal. Doppler interrogation of aortic valve reveals no stenosis or insufficiency. There is approximately moderate mitral insufficiency. There is at least moderate or moderately severe tricuspid insufficiency. Calculated pulmonary artery pressure is at least in 40s, which would correspond to moderate pulmonary hypertension. Pulmonic valve exhibits no stenosis or insufficiency. Evaluation of diastolic function reveals normal mitral inflow pattern, but very low E prime velocities of mitral annulus (5.7 and 8.9 cm/s in septal and lateral mitral annulus). This corresponds to grade 2 diastolic dysfunction and likely elevated left ventricular end-diastolic pressure. CONCLUSIONS: 1. Study is of good technical quality. 2. Normal LV size with hyperdynamic LV systolic function. 3. Very prominent degenerative abnormalities of mitral valve resulting in approximately moderate insufficiency. Cannot completely rule out presence of vegetations. 4. Aortic sclerosis, but no stenosis or insufficiency. 5. Dilated right-sided chambers. 6. Moderate or moderately severe tricuspid insufficiency. 7. Likely normal central venous pressure. 8. At least moderate pulmonary hypertension. COMMENT: Subacute bacterial endocarditis (SBE) prophylaxis is not recommended. Compared to echocardiogram from 11/09/2015, there has been minimal change.
--- NOTE | 2016-12-23 21:48 | MHCR ---
DATE OF CONSULTATION: 12/22/2016 CURRENT MEDICATIONS: - Ambien 10 mg by mouth at bedtime (q.h.s.) for insomnia. CHIEF COMPLAINT: Depression with suicidal ideation. HISTORY OF PRESENT ILLNESS: This is an 81-year-old white female seen with her Yonis. The patient is seen in the emergency room before transferred upstairs to [facility]. The patient is voicing depression with suicidal thoughts. She has no actual suicide plan. She has been feeling depressed for several weeks now. She feels overwhelm by her health condition. She complains of pain all over in her bones, her skin, etc. She complains of lack of energy. She can even walk, she has to use a wheelchair which is frustrating. Her travel back and forth for the dialysis is stressful for both and her . At times, she wonders if life is worth living. She has no intentions of discontinuing the dialysis however. The patient does have a history of chronic renal failure dating back 25 to 30 years. She did have a kidney transplant, which was quite successful for decades, but she is back on the dialysis for the past three years. Currently, she states her appetite is good. She has gained weight, but most of it is fluid according to her . She states her concentration is fine. She is not able to read, but she does like to listen to books on CD. She likes to watch television as well. Her level of energy is low, but this is likely due to her medical condition. The patient has had insomnia for which the Ambien has been helpful. The patient states that she was on an antidepressant decades ago, but cannot remember what the medication was. That episode was quite brief. The patient has no other psychosocial stressors. She has no other psychiatric history either. The patient has been since 1992. The patient has three adult children. 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 She has been retired for many years. MENTAL STATUS EXAMINATION: The patient is alert and oriented. Her eyes are closed. No cognitive deficits noted. Short-term memory recall is quite good. Interpretation of proverbs is concrete. Affect does appear to be sad with moderate depression. She had suicidal thoughts, but no active intent. The patient is not on psychotics. She is not hearing voices. No paranoia or thought disorder. Insight and judgment are fair. No current signs of dangerous or impulsivity. DIAGNOSIS: 1. Major depression, moderate severity, single episode. PLAN: The case reviewed with Dr. Jackson. I would recommend sertraline 25 mg by mouth every morning, which generally is well tolerated in patients with end-stage renal disease. One other option might be low-dose fluoxetine if the sertraline is not well tolerated. I will check in with the patient later in the week.
[2016-12-23] MEDS: zolPIDEM TARTRATE 10MG TAB PO PRN (22:20)
[2016-12-24] VITALS (8 sets, daily range): BP systolic 110–137; BP diastolic 57–91
[2016-12-24] MEDS: LEVALBUTEROL 1.25 MG/0.5 ML CONCENTRATE NEB NEB SCH ×4 (01:44→20:33)
[2016-12-24] MEDS: PERCOCET 5MG/325MG TAB PO PRN ×5 (03:16→21:13)
[2016-12-24 05:09] LABS: BASO % 0.2 % (0.0-1.0); EOS # 0.1 K/mm3 (0.0-0.50); EOS % 0.8 % (0.0-3.0); LARGE UNSTAINED CELL # 0.1 K/mm3 (0.0-0.4); LARGE UNSTAINED CELL % 1.2 % (0.0-4.0); LYMPH # 1.7 K/mm3 (1.5-4.5); MEAN CORPUSCULAR HEMOGLOBIN 27.1 pg (27.0-33.0); MEAN CORPUSCULAR HGB CONC 29.3 g/dl (32.0-36.5); MEAN CORPUSCULAR VOLUME 92.6 fl (80.0-96.0); MONO # 0.4 K/mm3 (0.0-0.8); MONO % 4.3 % (0.0-5.0); NEUTROPHILS % 73.4 % (36.0-66.0); PLATELET COUNT, AUTOMATED 170 k/mm3 (150-450); RED CELL DISTRIBUTION WIDTH 19.8 % (11.5-14.5); WHITE BLOOD COUNT 8.2 K/mm3 (4.0-10.0)
[2016-12-24 05:21] LABS: ALBUMIN 1.3 GM/DL (3.2-5.2); ALBUMIN/GLOBULIN RATIO 0.3 (1.00-1.93); BILIRUBIN,TOTAL 0.3 MG/DL (0.2-1.0); CALCIUM LEVEL 8.2 MG/DL (8.8-10.2); CREATININE FOR GFR 4.44 MG/DL (0.55-1.02); GLOMERULAR FILTRATION RATE 10.1 (>32); MAGNESIUM LEVEL 2.2 MG/DL (1.8-2.4); POTASSIUM SERUM 4.7 MEQ/L (3.5-5.1); TOTAL PROTEIN 5.6 GM/DL (6.4-8.2)
[2016-12-24] MEDS: HEPARIN SOD (PORCINE) 5000 UNITS/ML VIAL SC SCH ×3 (05:56→21:12)
[2016-12-24] MEDS: (RENVELA) SEVELAMER **CARBONate** 800 MG TAB PO SCH ×3 (07:31→18:08)
[2016-12-24] MEDS: METOPROLOL SUCC (TopROL XL) 50MG **XL** TAB PO SCH (07:31)
[2016-12-24] MEDS: VITAMIN D 1,000 INTERNATIONAL UNITS TABLET PO SCH (07:31)
[2016-12-24] MEDS: LISINOPRIL 10 MG TAB PO SCH ×2 (07:32→21:12)
[2016-12-24] MEDS: amLODIPine 10 MG TAB PO SCH (07:32)
[2016-12-24] MEDS: SERTRALINE HCL 25 MG TABLET PO SCH (07:33)
--- NOTE | 2016-12-24 09:18 | REP ---
CHEST, TWO VIEWS: Two views of the chest are performed and compared to a prior study of 12/23/2016. Pigtail drainage catheter is again seen in the left lower hemithorax. There are again bilateral infiltrates and effusions with a decreased amount of left pleural fluid noted. Cardiomediastinal silhouette and the remainder of the study appear unchanged. Signed by Jaguar Murillo MD 12/24/2016 11:58 A
--- NOTE | 2016-12-24 09:25 | IPN ---
DATE: 12/23/2016 Ms. Hi is still awaiting her pleural catheter placement. Overnight, she states that she is not short of breath and she is comfortable. She still has her cough but this is nonproductive. She is not complaining of chest pain. She still feels restricted when she takes a deep breath. I obtained a CT scan of her chest last night and I will discuss that below. Her vital signs show a maximum temperature (t-max) of 99.3 with a heart rate that ranges between 54 and 65 in a sinus rhythm, respiratory rate of 16 to 20 without the use of accessory muscles, who is 98% saturated on 2 liters nasal cannula and whose blood pressure is ranging between 129/71 to 143/75. Her intake and output for the past 24 hours has been recorded as 40 in and 480 out. In the last 8 hours, she has taken in 240 mL and has had 500 mL output for a negativity of 260 mL. PHYSICAL EXAMINATION: LUNGS: Her lungs still show a very dull percussion note in the left hemithorax. She has transmitted breath sounds in the left hemithorax. There are also decreased breath sounds on the right hemithorax, but not as great as on the left. I hear no wheezes, but I do hear rhonchi and rales. CARDIAC EXAM: Without murmurs, clicks, gallops or rubs. I cannot feel her point of maximum impulse (PMI). S1, S2 are normal. ABDOMEN: Soft, nontender. Bowel sounds positive. There is no hepatomegaly. No costovertebral angle tenderness. EXTREMITIES: Show 3 to 4+ pretibial edema. No calf tenderness. No differential swelling of the upper extremities. SKIN: Warm, dry and perfused without cyanosis or mottling, including that of the nail beds and knees. Her right leg which was reddened yesterday is not as reddened today. NECK: Supple. There is no jugular venous distention. No subcutaneous emphysema. Trachea is midline. MOUTH: Shows her mucous membranes to be pink and moist. Lips and commissures without lesions. There is no thrush. EYES: Show her pupils to be equal and reactive. Extraocular motion intact. Sclerae anicteric. NEUROLOGIC: Shows II through XII intact with gross motor and gross sensation intact. Gait is not tested. PSYCHIATRIC: Shows her to be awake and alert. Her white count today is 7.3 with a hemoglobin and hematocrit of 10.4 and 34.8 with a platelet count of 168. She has 60% neutrophils, 31% lymphocytes, 9% monocytes. There are no immature forms. No toxic granulations. Her chemistries this morning show normal electrolytes with a BUN and creatinine of 36 and 3.72. She has not yet dialyzed. Glucose is 72 with a calcium of 8.3. AST and ALT are 42 and 14, respectively with an albumin of 1.3. Her blood gases this morning show a pH of 7.42, PCO2 of 45, PO2 of 70 with a base excess of 4.1. Her chest CT done last night at my request shows a sizeable left pleural effusion. More significantly however there is a right middle lobe atelectasis with air bronchograms. I cannot tell if this is infiltrative process. I do not see an endobronchial lesion in the middle lobe bronchi, however. There looks to be a mass of lymph nodes in and around the bronchus intermedius in the take off of the middle lobe. The study was done without contrast, but the bobby collection may be contiguous with a larger mass in the hilum. I cannot really tell if it is an enlarged left atrium or whether it is a true mass. The left lower lobe shows complete compression atelectasis. There is impressive bronchiectasis in the middle lobe. There may be some mediastinal lymphadenopathy pretracheally and in and around the leia. She has an enlarged ascending aorta with extensive calcifications. She has considerable calcifications in the left and right coronary artery systems. She has ascites. I do not see any liver lesions, per se. IMPRESSION: 1. Left sided pleural effusion, unknown origin, recurrent. 2. Hypoalbuminemia. 3. Renal failure requiring dialysis. 4. Hypertension. 5. History of hepatitis C, treated. 6. Diastolic congestive heart failure. 7. Chronic anemia. 8. Atelectasis consolidation of right middle lobe, possible right middle lobe syndrome. PLAN AND DISCUSSION: Her rheumatoid factor has come back positive. That certainly does not particularly point to a rheumatic pleural effusion, but in the absence of any other source then we could consider that. She still has to go for her diagnostic and therapeutic tap and that should give us some more answers. I suspect that this is going to be secondary to her severe hypoalbuminemia. Again, the fluid chemistries will shed more light on the nature of her pleural effusion. I do not think that she has pneumonia. Her right middle lobe is completely atelectatic with severe bronchiectasis. This could be a long-standing chronic problem. It is however on the right side and the predominant pleural effusion on the left side, I do not think that she has a pneumonia or an empyema.
[2016-12-24] MEDS ORDERED: DARBEPOETIN 100 MCG/0.5 ML *DIALYSIS* SYRINGE (J0882) IV SCH (10:15)
[2016-12-24] MEDS ORDERED: HEPARIN 1,000 UNITS/ML 10ML VIAL (FOR RADIOLOGY& DIALYSIS ONLY) IV ONE (11:45)
[2016-12-24] MEDS ORDERED: LIDOCAINE 1% SDV 5 ML VIAL SQ ONE (11:45)
--- NOTE | 2016-12-24 13:55 | IPN ---
DATE: 12/24/2016 Ms. Hi her pleural cavity drained of 500 mL of clear, kisha fluid. She states that she is less constricted with breathing, although she still has a cough. She is not producing sputum, although when she does cough I can hear it and she is swallowing it. Her vital signs show a maximum temperature (t-max) of 99.8 with a heart rate that ranges between 75 and 77 in a sinus rhythm, respiratory rate of 18 to 16 without the use of accessory muscles, who is 92% saturated on 2 liters nasal cannula, and whose blood pressure is ranging between 140/74 to 120/57. Her intake and output over the past 24 hours has been recorded as 1080 in and 1080 out for equality. Her weight today is 44.8 kg compared to 44.6 kg yesterday. She has put out a total of 1000 mL from the chest catheter. PHYSICAL EXAMINATION: LUNGS: Her lungs still show bronchophony and coarse rhonchi in the left lower hemithorax. There is also some fine rhonchi during inspiration in the right lower hemithorax. Percussion note is full to the diaphragm. CARDIAC EXAM: Without murmurs, clicks, gallops or rubs. I cannot feel her point of maximum impulse (PMI). S1, S2 are normal. ABDOMEN: Soft, nontender. Bowel sounds positive. There is no hepatomegaly. No costovertebral angle tenderness. EXTREMITIES: Show 3+ pretibial edema on the right and 2+ on the left. There is no calf tenderness. No differential swelling of the upper extremities. SKIN: Warm, dry and perfused without cyanosis or mottling, including that of the nail beds and knees. NECK: Supple. There is no jugular venous distention. No subcutaneous emphysema. Trachea is midline. MOUTH: Shows her mucous membranes to be pink and moist. Lips and commissures without lesions. There is no thrush. EYES: Show her pupils to be equal and reactive. Extraocular motion intact. Sclerae anicteric. NEUROLOGIC: Shows II through XII intact with gross motor and gross sensation intact. Gait is not tested. PSYCHIATRIC: Shows her to be awake and alert. Her white count today is 8.2 with a hemoglobin and hematocrit of 9.9 and 33.7, essentially unchanged from yesterday. Platelet count is 170. Differential shows 73% neutrophils, 20% lymphocytes, 4% monocytes. There are no immature forms. No toxic granulations. Her chemistries show normal electrolytes with a BUN and creatinine of 44 and 4.44. She is going for dialysis today. Glucose is 90 with a calcium of 8.2 and albumin of 1.3, which is unchanged. AST and ALT are 28 and 11, respectively. Magnesium is 2.2. JACOB is still pending. Her pleural fluid has come back with 2% neutrophils, 85% lymphocytes and 13 monocytes. There are 537 nucleated cells in total. Her glucose is 129 with an LDH of 97. Corresponding serum LDH is 195. Cytologies and pathology pending. Her chest x-ray today shows almost all the left pleural effusion resolved with the catheter. She still has a small right pleural effusion. There looks to be post compression atelectasis in the left lower hemithorax. IMPRESSION: 1. Left sided pleural effusion, transudative and normoglycemic. 2. Hypoalbuminemia. 3. Renal failure requiring dialysis. 4. Hypertension. 5. History of hepatitis C. 6. Diastolic congestive heart failure. 7. Chronic anemia. 8. Atelectasis of right middle lobe, possible right middle lobe syndrome. PLAN AND DISCUSSION: Her echocardiogram was done on 12/23/2016. She has an estimated ejection fraction of 70% with moderate mitral valve insufficiency. There is no aortic stenosis. She has moderate to severe tricuspid insufficiency. Right now her pleural fluid looks to be transudative and lymphocytic. We will await pathology. I suspect that this is going to be secondary to her tricuspid regurgitation and mitral valve regurgitation in combination with renal failure. She has plenty of blood pressure and I would recommend that she be dialyzed very aggressively in order to control the pleural effusions. She certainly needs more nutrition in that her albumin is very low, although she is lowing albumin in the pleural fluid. I am not keen on placing a PleurX catheter from both a physiological point of view, which will only deplete her of more albumin, but also from a practical care point of view. The best of all possible worlds would be to control this medically. Again, having such good blood pressure and as her kidneys are already gone, we could fluid reduce her even more.
--- NOTE | 2016-12-24 15:15 | IPNPDOC ---
Text Note Date of Service The patient was seen on 12/24/16. NOTE Subjective: Patient states her dyspnea significantly improved. No cough this time. Tolerating CAT scan. Objective: Vitals: (see below) General: No acute distress, laying comfortably in chair. HEENT: Moist mucous membranes. Neck: No JVD or lymphadenopathy. Cardiac: RRR, No murmurs. Pulm: Coarse crackles L>R. Pleurx Catheter in place draining. Mild tenderness to palpation. No bleeding. Mild rhonchi on right. Abd: NT/ND + BS Ext: 1-2 + pitting edema BLE R>L. Distal pulses intact. Labs (see below) Images: CT Chest 12/22/16 IMPRESSION: 1. Large left pleural effusion. Consolidation at the left lung base. 2. Small to moderate right pleural effusion. 3. Mass like consolidation noted in the right middle lobe containing air bronchograms, malignancy is not excluded. 4. Diffuse abdominal ascites. 5. Compression fractures of T2, T8, T9, T11 and L1 vertebral bodies. 6. Additional findings as above. CXR 12/24/16 Pigtail drainage catheter is again seen in the left lower hemithorax. There are again bilateral infiltrates and effusions with a decreased amount of left pleural fluid noted. Cardiomediastinal silhouette and the remainder of the study appear unchanged. Assessment/Plan 1. Recurrent bilateral pleural effusions- with recurrent drainage. Status post pigtail catheter. Dr. Armijo on board. Appears transudative exudative in nature. Cultures pending. Questionable secondary to her hypoalbuminemia vs underlying chronic diastolic heart failure/end-stage renal disease on hemodialysis. 2. Dyspnea with associated hypoxia- likely secondary to the pleural effusions. Afebrile. No leukocytosis. 3. Hypertension- better controlled. Continue current meds. 4. End stage renal disease on hemodialysis. Appreciate nephrology input. Continue hemodialysis as directed. 5. History of depression, with suicidal ideations shortly after admission. The patient does not have a plan. Has been evaluated by Dr. Gamez who recommends discontinuing the sitter. He is also started on SSRI. 6. Chronic hepatitis C- has followed up with Dr. Penn 7. Chronic diastolic heart failure- management with hemodialysis. Echocardiogram in October 2015 with diastolic heart failure. Moderate to severe pulmonary hypertension as well as moderate to severe tricuspid regurgitation/ mitral regurg. Echocardiogram repeated and pending. 8. Chronic anemia- may be secondary to renal failure. Stable at baseline. No need for transfusion at this time. We will continue to monitor. 9. Chronic lower extremity edema, with right than the left. 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 We will obtain Doppler ultrasound to rule out DVT. 10. RML mass like consolidation - will address with Dr. Armijo. DVT prophy: Heparin subcutaneous VS,Fishbone, I+O VS, Fishbone, I+O Laboratory Tests 12/24/16 04:55 Red Blood Count 3.63 L, Mean Corpuscular Volume 92.6, Mean Corpuscular Hemoglobin 27.1, Mean Corpuscular Hemoglobin Concent 29.3 L, Red Cell Distribution Width 19.8 H, Neutrophils (%) (Auto) 73.4 H, Lymphocytes (%) (Auto ) 20.0 L, Monocytes (%) (Auto) 4.3, Eosinophils (%) (Auto) 0.8, Basophils (%) ( Auto) 0.2, Neutrophils # (Auto) 6.0, Lymphocytes # (Auto) 1.7, Monocytes # (Auto ) 0.4, Eosinophils # (Auto) 0.1, Basophils # (Auto) 0.0, Calcium Level 8.2 L, Aspartate Amino Transf (AST/SGOT) 28, Alanine Aminotransferase (ALT/SGPT) 11 L, Alkaline Phosphatase 106, Total Bilirubin 0.3, Total Protein 5.6 L, Albumin 1.3 L Vital Signs Date Time Temp Pulse Resp B/P (MAP) Pulse Ox O2 Delivery O2 Flow Rate FiO2 12/24/16 14:33 16 12/24/16 12:00 Nasal Cannula 2.0 12/24/16 12:00 99.1 68 137/66 (04) 92 I&O- Last 24 Hours up to 6 AM 12/24/16 06:00 Intake Total 1320 ml Output Total 1200 ml Balance 120 ml REYES BLANTON MD Dec 24, 2016 15:15
--- NOTE | 2016-12-24 16:58 | IPN ---
DATE: 12/24/2016 SUBJECTIVE: Patient was seen and examined at the bedside today morning in the intensive care unit (ICU). Patient is stable at this time. No apparent distress. She is saturating well currently. Last 24-hour events were noted. Patient got the left-sided pleural catheter placed, which is currently attached to suctioning. Today is patient's regular day of hemodialysis. REVIEW OF SYSTEMS: Patient denies any fever, chills, rigors, headache, nausea, vomiting, or chest pain. She reports her shortness of breath is getting better. She denies any pain in abdomen, constipation, or diarrhea. Patient reports tender bilateral lower extremity edema. Rest of review of systems is negative. OBJECTIVE: Vital signs: Temperature is 99.1 degrees Fahrenheit, blood pressure is 137/66, pulse is 68, respiratory rate of 16, saturating 92% on nasal cannula at 2 liters. Intake and output: There is no urine output recorded. Left-sided pleural catheter drainage was 1 liter yesterday, 120 mL so far today since overnight. Weight in the bed scale is 44.8 kg. PHYSICAL EXAMINATION: GENERAL: Patient is awake, alert, oriented times two, lying in bed on nasal cannula. No apparent distress. HEAD AND NECK: Extraocular muscles intact. Pupils equally round and reactive to light. Mucous membranes are moist. Neck is supple. There is no jugular venous distention (JVD). CARDIOVASCULAR: S1, S2, regular rate. No murmur, rub, or gallop. RESPIRATORY: Patient has decreased breath sounds on the right base. She has decreased breath sounds in left base and positive crepitations on deep inspiration on the left side. Patient has a left-sided pleural catheter, which is covered with a dressing on the left lower chest. ABDOMEN: Abdomen is soft. Positive bowel sounds. Nontender. No ascites. No organomegaly. MUSCULOSKELETAL: Patient as 2+, tender edema of the right lower extremity and 1+ edema of the left lower extremity. She also has a small dressing on the left leg. CENTRAL NERVOUS SYSTEM: No focal neurological deficit. She is oriented times two, and she follows commands. PSYCHIATRIC: Normal mood and affect. LABORATORY REVIEW: CBC showed a WBC of 8.2, hemoglobin 9.9, platelets are 170. BMP showed sodium 138, potassium 4.7, chloride 103, bicarbonate 28, BUN is 44, creatinine is 4.4, calcium is 8.2, albumin 1.3. Microbiology: Gram stain of the pleural fluid showed many WBCs. No organisms. IMAGING: Chest x-ray done today morning showed a pigtail catheter in the left lower hemithorax and improving left pleural effusion. CURRENT INPATIENT MEDICATIONS: Patient's medications were all reviewed by me. There is no change in the medications today as compared with yesterday, except that she will get a dose of Aranesp with hemodialysis today. ASSESSMENT: An 81-year-old female with a past medical history of end-stage renal disease, on hemodialysis, chronic longstanding hypertension, recurrent pleural effusion, admitted at this time because of hypertensive urgency, shortness of breath, and left-sided pleural effusion. PLAN: 1. End-stage renal disease, on hemodialysis. Today is patient's regular day of hemodialysis. We shall dialyze her at the bedside today in the ICU and will remove 2 liters of fluid as tolerated by her blood pressure. 2. Left-sided pleural effusion, status post left pleural catheter. Catheter is attached to suctioning at this time. She has put out more than a liter of fluid since yesterday. Rest of the management is as per surgical service. 3. Hypertension. Blood pressure is acceptable at this time. Continue current dose of metoprolol, amlodipine, and lisinopril. I have stopped the labetalol at this time. 4. Anemia and end-stage renal disease. Patient will get a dose of Aranesp with hemodialysis today.
--- NOTE | 2016-12-24 19:56 | REP ---
Bilateral lower extremity Duplex Doppler venous ultrasound: Real time compression and duplex Doppler interrogation of the bilateral lower extremity deep venous system is performed. Bilaterally, the common femoral, superficial femoral and popliteal veins are fully compressible with transducer pressure and demonstrate normal spontaneous and phasic flow, without evidence of deep venous thrombosis. Impression: No evidence of deep venous thrombosis of the bilateral lower extremity femoral popliteal venous system. Signed by Jaguar Murillo MD 12/24/2016 07:47 P
[2016-12-24] MEDS: zolPIDEM TARTRATE 10MG TAB PO PRN (21:12)
[2016-12-24] MEDS: PANTOPRAZOLE 40MG TAB (PROTONIX) PO SCH (21:12)
[2016-12-24] MEDS ORDERED: SLF 3 ML SYR IV PRN (21:15)
[2016-12-24] MEDS: SLF 3 ML SYR IV SCH (21:23)
[2016-12-25] MEDS: LEVALBUTEROL 1.25 MG/0.5 ML CONCENTRATE NEB NEB SCH ×4 (01:39→19:40)
[2016-12-25] MEDS: PERCOCET 5MG/325MG TAB PO PRN ×2 (03:50→10:31)
[2016-12-25 03:59] VITALS: BP 114/64
[2016-12-25] MEDS: HEPARIN SOD (PORCINE) 5000 UNITS/ML VIAL SC SCH ×3 (06:18→20:15)
[2016-12-25] MEDS: SLF 3 ML SYR IV SCH ×3 (06:18→20:15)
[2016-12-25 06:21] LABS: ADD MANUAL DIFFER YES; MEAN CORPUSCULAR HEMOGLOBIN 27.4 pg (27.0-33.0); MEAN CORPUSCULAR HGB CONC 29.4 g/dl (32.0-36.5); MEAN CORPUSCULAR VOLUME 93.4 fl (80.0-96.0); PLATELET COUNT, AUTOMATED 158 k/mm3 (150-450); RED CELL DISTRIBUTION WIDTH 19.8 % (11.5-14.5); WHITE BLOOD COUNT 9.4 K/mm3 (4.0-10.0)
[2016-12-25 06:37] LABS: ALBUMIN 1.3 GM/DL (3.2-5.2); ALBUMIN/GLOBULIN RATIO 0.28 (1.00-1.93); BILIRUBIN,TOTAL 0.4 MG/DL (0.2-1.0); CALCIUM LEVEL 8.2 MG/DL (8.8-10.2); CREATININE FOR GFR 3.13 MG/DL (0.55-1.02); GLOMERULAR FILTRATION RATE 15.2 (>32); MAGNESIUM LEVEL 2.1 MG/DL (1.8-2.4); POTASSIUM SERUM 4.5 MEQ/L (3.5-5.1)
[2016-12-25 07:23] LABS: ANISOCYTOSIS 2+; HYPOCHROMASIA 1+
[2016-12-25 08:00] VITALS: BP 123/73
[2016-12-25] MEDS: (RENVELA) SEVELAMER **CARBONate** 800 MG TAB PO SCH ×3 (08:00→17:23)
--- NOTE | 2016-12-25 08:48 | REP ---
Chest semi upright AP and lateral views: Comparison is 12/24/2016. There is a pigtail drainage catheter in the posterior inferior pleural space on the left, unchanged. There are bilateral pleural effusions, not significantly changed. There is no pneumothorax. Cardiac size appears enlarged, unchanged. There is mild diffuse interstitial coarsening, unchanged. There is an old left humeral neck/head fracture. There is a vascular stent superimposed over the upper mediastinum, unchanged. Impression: No significant interval change. Signed by Jaguar Suárez MD 12/25/2016 08:40 A
[2016-12-25] MEDS: amLODIPine 10 MG TAB PO SCH (10:27)
[2016-12-25] MEDS: VITAMIN D 1,000 INTERNATIONAL UNITS TABLET PO SCH (10:28)
[2016-12-25] MEDS: LISINOPRIL 10 MG TAB PO SCH ×2 (10:28→20:14)
[2016-12-25] MEDS: METOPROLOL SUCC (TopROL XL) 50MG **XL** TAB PO SCH (10:28)
[2016-12-25] MEDS: SERTRALINE HCL 25 MG TABLET PO SCH (10:29)
[2016-12-25] MEDS ORDERED: HEPARIN 1,000 UNITS/ML 10ML VIAL (FOR RADIOLOGY& DIALYSIS ONLY) IV ONE (12:00)
[2016-12-25] MEDS ORDERED: LIDOCAINE 1% SDV 5 ML VIAL SQ ONE (12:00)
--- NOTE | 2016-12-25 12:05 | IPN ---
DATE OF SERVICE: 12/25/2016 Ms. Hi underwent dialysis yesterday with 300 mL taken off. She states she is breathing well. She is complaining of very little pain. She is eating about 50% of her meals. Her vital signs show a maximum temperature (Tmax) 98.8 with a heart rate that ranges between 77 and 72 in a sinus rhythm, respiratory rate of 16-18 without the use of accessory muscles, who is 96% to 99% saturated on 2 liters nasal cannula, and whose blood pressure is ranging between 135/77 to 114/64. Her intake and output over the past 24 hours has been recorded as 620 in and 1920 out for a negativity of 1300 mL. She has put 450 mL out of the chest tube in 24 hours and 150 mL in the last 9 hours. She weighs 42.5 kg today compared to 44.8 kg yesterday. On physical examination, she has coarse rhonchi in both lungs, particularly on the left. Percussion notes are full to the diaphragm. CARDIAC EXAMINATION: Is without murmurs, clicks, gallops, or rubs. I cannot feel her point of maximum impulse (PMI). S1 and S2 are normal. ABDOMEN: Is soft, nontender, but tympanitic and distended. There is no hepatomegaly. No costovertebral angle (CVA) tenderness. EXTREMITIES: Show 3+ pretibial edema on the right and 2+ on the left. There is no calf tenderness. No differential swelling of the upper extremities. SKIN: Is warm, dry, and perfused without cyanosis or mottling, including that of the nail beds and the knees. NECK: Is supple. There is no jugular venous distention. No subcutaneous emphysema. Trachea is midline. MOUTH: Shows her mucous membranes to be pink and moist. Lips and commissures without lesions. There is no thrush. EYES: Show her pupils to be equal and reactive. Extraocular motion intact. Sclerae anicteric. NEUROLOGIC: Shows II-XII intact, along with gross motor and gross sensation intact. Gait is not tested. PSYCHIATRIC: Shows her to be awake and alert and pleasantly conversational. Her white count today is 9.4 with a hemoglobin and hematocrit of 9.9 and 33.8, unchanged from yesterday with a platelet count of 158. The differential shows 82% neutrophils, 13% lymphocytes, 5% monocytes. There are no immature forms. No toxic granulations. Her electrolytes are normal with a BUN and creatinine of 26 and 3.13 after dialysis. Glucose is 63 with a phosphorus of 8.2. Magnesium is 2.1. Calcium is 8.2 with an albumin of 1.3, which is unchanged. Antinuclear antibody (JACOB) screen is negative. I discussed her pleural fluid yesterday, being transudative and lymphocytic. There is no anaerobic or aerobic growth in the cultures, and the pathology, cytologies has been returned without malignancy. Cell block is still pending. Her chest x-ray today shows the lung fully expanded to the chest. Almost all the pleural effusion is one on the left. There is some costophrenic angle blunting on the right. She looks to have a possible atelectasis or infiltrative process posteriorly, which I suspect is referable to the right side rather than the left side. It actually looks more fluid than infiltrative. IMPRESSION: 1. Recurrent left side pleural effusions, transudative and normoglycemic and lymphocytic. 2. Hypoalbuminemia. 3. Renal failure requiring dialysis. 4. Hypertension. 5. History of hepatitis C. 6. Diastolic congestive heart failure. 7. Chronic anemia. 8. 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 PLAN AND DISCUSSION: Her right middle lobe on the CT scan shows extensive bronchiectasis. This looks to be longstanding. She does have a lot of lymphadenopathy in and around the bronchus intermedius and the middle lobe, which is suspect is secondary to chronic inflammation from her bronchiectasis and consolidation. Even if this were carcinoma, she would not be a candidate for chemotherapy because of functional status. Nonetheless, it is probably not, with middle lobe syndrome, usually secondary to an inflammatory process ranging from sarcoid to mycobacterium avium complex. If this were microbacterium avium complex, I do not think that she would stand a treatment of 2 years; but nonetheless, the middle lobe is completely destroyed; and in the absence of being asymptomatic, I would merely observe the finding. Her main problem is her recurrent pleural effusions. She certainly has enough blood pressure; and while 1500 mL were taken off yesterday, I would recommend to nephrology that she be very aggressively diuresed to the point of mild hypotension. Rather than dialysis, ultrafiltration can be undertaken to remove fluid. There is a natural shortage of talc; and, therefore, there is no talc available; and even if there were, a talc pleurodesis would be a very rigorous procedure from the associated diffuse inflammatory response of the talc. I do think this can still be managed medically; and with her in the hospital, she will be dialyzed every day. JV
[2016-12-25] MEDS ORDERED: PERCOCET 5MG/325MG TAB PO ONE (13:45)
[2016-12-25] MEDS ORDERED: MORPHINE 2 MG/ML 1ML SYRINGE IV ONE (13:45)
--- NOTE | 2016-12-25 14:27 | IPNPDOC ---
Text Note Date of Service The patient was seen on 12/25/16. NOTE Subjective: Patient states her dyspnea has improved. She complains of pain at the chest tube site. Objective: Vitals: (see below) General: No acute distress, laying comfortably in chair. HEENT: Moist mucous membranes. Neck: No JVD or lymphadenopathy. Cardiac: RRR, No murmurs. Pulm: Coarse crackles L>R. pigtail Catheter in place draining. Mild tenderness to palpation. No bleeding. Mild rhonchi on right. Abd: NT/ND + BS Ext: 1-2 + pitting edema BLE R>L. Distal pulses intact. Labs (see below) Images: CT Chest 12/22/16 IMPRESSION: 1. Large left pleural effusion. Consolidation at the left lung base. 2. Small to moderate right pleural effusion. 3. Mass like consolidation noted in the right middle lobe containing air bronchograms, malignancy is not excluded. 4. Diffuse abdominal ascites. 5. Compression fractures of T2, T8, T9, T11 and L1 vertebral bodies. 6. Additional findings as above. CXR 12/24/16 Pigtail drainage catheter is again seen in the left lower hemithorax. There are again bilateral infiltrates and effusions with a decreased amount of left pleural fluid noted. Cardiomediastinal silhouette and the remainder of the study appear unchanged. Assessment/Plan 1. Recurrent bilateral pleural effusions- with recurrent drainage. Status post pigtail catheter. Dr. Armijo on board. Appears transudative exudative in nature. Cultures pending. Questionable secondary to her hypoalbuminemia vs underlying chronic diastolic heart failure/end-stage renal disease on hemodialysis. 2. Dyspnea with associated hypoxia- likely secondary to the pleural effusions. Afebrile. No leukocytosis. 3. Hypertension- better controlled. Continue current meds. 4. End stage renal disease on hemodialysis. Appreciate nephrology input. Continue hemodialysis as directed. 5. History of depression, with suicidal ideations shortly after admission. The patient does not have a plan. Has been evaluated by Dr. Gamez who recommends discontinuing the sitter. He is also started on SSRI. 6. Chronic hepatitis C- has followed up with Dr. Penn 7. Chronic diastolic heart failure- management with hemodialysis. Echocardiogram in October 2015 with diastolic heart failure. Moderate to severe pulmonary hypertension as well as moderate to severe tricuspid regurgitation/ mitral regurg. Echocardiogram repeated and pending. 8. Chronic anemia- may be secondary to renal failure. Stable at baseline. No need for transfusion at this time. We will continue to monitor. 9. Chronic lower extremity edema, with right than the left. 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 Doppler ultrasound negative for DVT. 10. RML mass like consolidation -discussed with Dr. Armijo -will observe for now as he will be no additional treatment for it as it is chronic. DVT prophy: Heparin subcutaneous VS,Fishbone, I+O VS, Fishbone, I+O Laboratory Tests 12/25/16 05:15 Red Blood Count 3.62 L, Mean Corpuscular Volume 93.4, Mean Corpuscular Hemoglobin 27.4, Mean Corpuscular Hemoglobin Concent 29.4 L, Red Cell Distribution Width 19.8 H, Calcium Level 8.2 L, Aspartate Amino Transf (AST/SGOT ) 26, Alanine Aminotransferase (ALT/SGPT) 12, Alkaline Phosphatase 118 H, Total Bilirubin 0.4, Total Protein 6.0 L, Albumin 1.3 L Vital Signs Date Time Temp Pulse Resp B/P (MAP) Pulse Ox O2 Delivery O2 Flow Rate FiO2 12/25/16 13:45 22 Nasal Cannula 2.0 12/25/16 10:27 77 123/73 12/25/16 08:00 98.7 18 I&O- Last 24 Hours up to 6 AM 12/25/16 05:59 Intake Total 380 ml Output Total 1800 ml Balance -1420 ml REYES BLANTON MD Dec 25, 2016 14:27
[2016-12-25 14:50] VITALS: BP 118/61
--- NOTE | 2016-12-25 15:22 | IPN ---
DATE: 12/25/2016 SUBJECTIVE: Patient was seen and examined at the bedside today morning during the work rounds and again during hemodialysis procedure. Patient still has a pigtail catheter on the left side, which is attached to suctioning. Patient got the hemodialysis done yesterday and tolerated an ultrafiltration of 1.5 liters. REVIEW OF SYSTEMS: Patient denies any fevers, chills, rigors, headache, nausea, vomiting, chest pain, or shortness of breath. She denies any pain in abdomen, constipation, or diarrhea. Rest of the review of systems is negative. OBJECTIVE: Vital signs: Temperature is 98.7 degrees Fahrenheit, blood pressure is 123/73, pulse is 77, respiratory rate of 18, saturating 18% on nasal cannula at 2 liters. Intake and output: There is no urine output recorded. Chest tube drainage was 420 mL yesterday, 150 mL so far today since overnight. Ultrafiltration with hemodialysis was 1500 mL. Weight in the bed scale is 42.5 kg. PHYSICAL EXAMINATION: GENERAL: Patient is awake, alert, oriented times three, lying in bed. No apparent distress. HEAD AND NECK: Extraocular muscles intact. Pupils equally round and reactive to light. Mucous membranes are moist. Neck is supple. There is slightly elevated jugular venous distention (JVD). CARDIOVASCULAR: S1, S2, regular rate. No murmur, rub, or gallop. RESPIRATORY: Patient has decreased breath sounds on the right base, and she has decreased breath sounds on the left base with mild crepitations on deep inspiration on the left. Patient also has a catheter in the left-sided pleural cavity. ABDOMEN: Soft. Positive bowel sounds. Nontender. No ascites. No organomegaly. MUSCULOSKELETAL: Patient has 2+ tender edema of the right lower extremity, 1+ edema of the left lower extremity, and she has 1+ edema of the bilateral upper extremities as well. Patient also has edema in the thighs. CENTRAL NERVOUS SYSTEM: No focal neurological deficit. She is oriented times two. She follows commands, and power is 5/5 in bilateral upper extremities. PSYCHIATRIC: Normal mood and affect. LABORATORY REVIEW: CBC showed a WBC 9.4, hemoglobin 9.5, platelets of 158. BMP showed sodium 139, potassium 4.5, chloride 103, bicarbonate 26, BUN 26, creatinine is 3.1. Microbiology: Sputum for Gram stain showed a few WBC, moderate gram-positive cocci in pairs, chains, and clusters. IMAGING: A chest x-ray done today morning showed mild diffuse interstitial coarsening. No significant change since yesterday. CURRENT INPATIENT MEDICATIONS: Patient's medications were all reviewed by me. There is no change in the medications today as compared with yesterday. ASSESSMENT: An 81-year-old female with past medical history of end-stage renal disease, on hemodialysis, chronic longstanding hypertension, recurrent pleural effusion, admitted at this time because of hypertensive urgency, shortness of breath, and left-sided pleural effusion. PLAN: 1. End-stage renal disease, on hemodialysis. Patient's regular dialysis days are Friday, , Friday. She was dialyzed yesterday according to her regular schedule; however, because of recurrent pleural effusion and fluid overload status, patient is getting ultrafiltration again, and we shall try to remove another 2 liters of fluid as tolerated by her blood pressure. 2. Left-sided pleural effusion. Patient is status post left-sided pigtail catheter placement. Patient still continues to drain transudative fluid. She has also fluid overload, so as recommended by CT surgical service as well, patient is getting an extra ultrafiltration session to optimize her fluid status. 3. Hypertension. Blood pressure is acceptable at this time. Continue current dose of metoprolol, amlodipine, and lisinopril. Hemodialysis and ultrafiltration will also help improve blood pressure. 4. Anemia and end-stage renal disease. Patient's hemoglobin is optimal at 9.9. She also got a dose of Aranesp 100 mcg IV with hemodialysis yesterday.
[2016-12-25 16:00] VITALS: BP 120/70
[2016-12-25] MEDS ORDERED: MOM 30ML SUSPENSION UDC PO PRN (16:00)
[2016-12-25] MEDS ORDERED: MORPHINE 2 MG/ML 1ML SYRINGE IV PRN (16:00)
[2016-12-25] MEDS ORDERED: PERCOCET 5MG/325MG TAB PO PRN (16:00)
[2016-12-25] MEDS: LIDOCAINE 5% (LIDODERM) PATCH TD SCH (17:23)
[2016-12-25 20:00] VITALS: BP 102/54
[2016-12-25] MEDS: MIRALAX *UNIT DOSE* 17GM PACKET PO SCH (20:12)
[2016-12-25] MEDS: DOCUSATE SODIUM 100 MG CAP PO SCH (20:12)
[2016-12-25] MEDS: PANTOPRAZOLE 40MG TAB (PROTONIX) PO SCH (20:14)
[2016-12-25] MEDS: **NOTE PATIENT COMMENT** MISC XX SCH (21:00)
[2016-12-25] MEDS: zolPIDEM TARTRATE 10MG TAB PO PRN (21:25)
[2016-12-25 23:22] VITALS: BP 120/66
[2016-12-26] MEDS: LEVALBUTEROL 1.25 MG/0.5 ML CONCENTRATE NEB NEB SCH ×4 (01:32→19:11)
[2016-12-26 03:38] VITALS: BP 134/63
[2016-12-26 06:10] LABS: BASO % 0.2 % (0.0-1.0); EOS % 0.2 % (0.0-3.0); LARGE UNSTAINED CELL # 0.2 K/mm3 (0.0-0.4); LARGE UNSTAINED CELL % 1.3 % (0.0-4.0); LYMPH # 1.8 K/mm3 (1.5-4.5); LYMPH % 13.9 % (24.0-44.0); MEAN CORPUSCULAR HEMOGLOBIN 27.1 pg (27.0-33.0); MEAN CORPUSCULAR HGB CONC 28.6 g/dl (32.0-36.5); MEAN CORPUSCULAR VOLUME 94.8 fl (80.0-96.0); MONO # 0.4 K/mm3 (0.0-0.8); MONO % 3.6 % (0.0-5.0); NEUTROPHILS # 9.5 K/mm3 (1.8-7.7); NEUTROPHILS % 80.8 % (36.0-66.0); PLATELET COUNT, AUTOMATED 218 k/mm3 (150-450); RED CELL DISTRIBUTION WIDTH 19.5 % (11.5-14.5); WHITE BLOOD COUNT 11.7 K/mm3 (4.0-10.0)
[2016-12-26 06:30] LABS: ALBUMIN 1.5 GM/DL (3.2-5.2); ALBUMIN/GLOBULIN RATIO 0.31 (1.00-1.93); BILIRUBIN,TOTAL 0.4 MG/DL (0.2-1.0); CALCIUM LEVEL 8.6 MG/DL (8.8-10.2); CREATININE FOR GFR 3.98 MG/DL (0.55-1.02); GLOMERULAR FILTRATION RATE 11.5 (>32); MAGNESIUM LEVEL 2.2 MG/DL (1.8-2.4); POTASSIUM SERUM 4.9 MEQ/L (3.5-5.1); TOTAL PROTEIN 6.3 GM/DL (6.4-8.2)
[2016-12-26] MEDS: HEPARIN SOD (PORCINE) 5000 UNITS/ML VIAL SC SCH ×3 (06:43→20:58)
[2016-12-26] MEDS: SLF 3 ML SYR IV SCH ×3 (06:43→21:18)
[2016-12-26] MEDS: DOCUSATE SODIUM 100 MG CAP PO SCH ×2 (06:43→20:58)
[2016-12-26] MEDS: LISINOPRIL 10 MG TAB PO SCH ×2 (06:44→22:13)
[2016-12-26] MEDS: MIRALAX *UNIT DOSE* 17GM PACKET PO SCH ×2 (06:44→20:57)
[2016-12-26] MEDS: amLODIPine 10 MG TAB PO SCH (06:44)
[2016-12-26] MEDS: VITAMIN D 1,000 INTERNATIONAL UNITS TABLET PO SCH (06:45)
[2016-12-26] MEDS: METOPROLOL SUCC (TopROL XL) 50MG **XL** TAB PO SCH (06:45)
[2016-12-26] MEDS: SERTRALINE HCL 25 MG TABLET PO SCH (06:45)
[2016-12-26] MEDS: LIDOCAINE 5% (LIDODERM) PATCH TD SCH (06:46)
[2016-12-26 08:00] VITALS: BP 111/62
[2016-12-26] MEDS ORDERED: BISACODYL 10 MG SUPP PR ONE (08:30)
[2016-12-26] MEDS: (RENVELA) SEVELAMER **CARBONate** 800 MG TAB PO SCH ×4 (08:48→18:00)
[2016-12-26 09:27] LABS: ABG BASE EXCESS -1.5 (-2.0-2.0); ABG HCO3 24.3 MEQ/L (22.0-26.0); ABG PARTIAL PRESSURE CO2 45.6 mmHg (35.0-45.0); ABG STANDARD HCO3 23.1 MEQ/L (22.0-26.0); ABG TOTAL CO2 25.7 MEQ/L (23.0-31.0); ABG pH (ARTERIAL) 7.344 UNITS (7.350-7.450)
--- NOTE | 2016-12-26 10:33 | REP ---
CHEST, ONE VIEW: HISTORY: Difficulty breathing. COMPARISON: 12/25/2016. An increase in interstitial markings is present in the lungs consistent with chronic interstitial change. Increased density is present in the left lower lobe consistent with atelectasis or infiltrate. A right pleural effusion is present that is increased compared to the previous study. A small left pleural effusion is present unchanged compared to the previous study. A catheter is present in the left hemithorax. There is no pneumothorax. The cardiac silhouette is enlarged. There is an old fracture of the proximal right humerus. IMPRESSION: 1. Chronic interstitial change. 2. Left lower lobe atelectasis or infiltrate. 3. Right pleural effusion increased compared to the previous study. Small left pleural effusion unchanged compared to the previous study. Signed by Adeel Otto MD 12/26/2016 10:41 A
[2016-12-26] MEDS ORDERED: NALOXONE INJ 0.4 MG/1 ML VIAL (J2310) IV STA (10:40)
[2016-12-26] MEDS ORDERED: cefTRIAXone SOD 1 GM in D5W MINI-BAG PLUS 50 ML IV SCH (11:00)
[2016-12-26] MEDS ORDERED: HEPARIN 1,000 UNITS/ML 10ML VIAL (FOR RADIOLOGY& DIALYSIS ONLY) IV ONE (11:30)
[2016-12-26] MEDS ORDERED: LIDOCAINE 1% SDV 5 ML VIAL SQ ONE (11:30)
[2016-12-26 12:00] VITALS: BP 133/69
--- NOTE | 2016-12-26 12:57 | MHCR ---
DATE OF CONSULTATION: 12/25/2016 CURRENT MEDICATIONS: - Sertraline 25 mg daily every morning HISTORY OF PRESENT ILLNESS: This 81-year-old white female with history of end stage renal disease. Patient is seen with her adult daughter who is visiting from [place]. Her is very ill and is not able to come into the hospital due to his health condition. Patient is getting daily dialysis which is quite exhausting for her. Patient states that her mood, however, is better. She feels more hopeful about the future. She hopes to be able to return home. The patient and her daughter have discussed various end of life issues and the patient appears quite accepting of her future. She has no suicidal plans or intent, however. She states her appetite is poor. She denies having diarrhea. She does report constipation. She still complains of chronic pain all over her body, her skin, her bones, etc.. Patient resting quietly in her hospital bed. MENTAL STATUS EXAMINATION: Patient is alert and oriented. Her eyes are open today. Affect is a bit brighter. She does appear quite exhausted, however. No memory deficits noted. She is not suicidal. No plans to harm self. No signs of psychosis. Insight and judgment seem much improved. DIAGNOSIS: Major depression, single episode. PLAN: Continue current dose of Sertraline 25 mg daily every morning. It appears to be well tolerated. I will check in with the patient later in the week or early next week if she is still here in the hospital. JV
--- NOTE | 2016-12-26 15:35 | IPNPDOC ---
Text Note Date of Service The patient was seen on 12/26/16. NOTE Subjective: Pt was more lethargic today, although easily arousable. Objective: Vitals: (see below) General: No acute distress, laying comfortably in chair. HEENT: Moist mucous membranes. Neck: No JVD or lymphadenopathy. Cardiac: RRR, No murmurs. Pulm: Coarse crackles L>R. pigtail Catheter in place draining. No bleeding. Mild rhonchi on right. Abd: NT/ND + BS Ext: 1-2 + pitting edema BLE R>L. Distal pulses intact. Alert and Oriented. Moving all extremities. Lethargic. Easily arousable. Labs (see below) Images: CT Chest 12/22/16 IMPRESSION: 1. Large left pleural effusion. Consolidation at the left lung base. 2. Small to moderate right pleural effusion. 3. Mass like consolidation noted in the right middle lobe containing air bronchograms, malignancy is not excluded. 4. Diffuse abdominal ascites. 5. Compression fractures of T2, T8, T9, T11 and L1 vertebral bodies. 6. Additional findings as above. CXR 12/24/16 Pigtail drainage catheter is again seen in the left lower hemithorax. There are again bilateral infiltrates and effusions with a decreased amount of left pleural fluid noted. Cardiomediastinal silhouette and the remainder of the study appear unchanged. Assessment/Plan 1. Recurrent bilateral pleural effusions- with recurrent drainage. Status post pigtail catheter. Dr. Armijo on board. Appears transudative exudative in nature. Cultures pending. Questionable secondary to her hypoalbuminemia vs underlying chronic diastolic heart failure/end-stage renal disease on hemodialysis. 2. Dyspnea with associated hypoxia- likely secondary to the pleural effusions. Afebrile. No leukocytosis. 3. Pneumonia - Klebsiella. Started on Rocephin. Bld cx sent. Lactic acid nl. 4. End stage renal disease on hemodialysis. Appreciate nephrology input. Continue hemodialysis as directed. 5. History of depression, with suicidal ideations shortly after admission. The patient does not have a plan. Has been evaluated by Dr. Gamez who recommends discontinuing the sitter. He is also started on SSRI. 6. Chronic hepatitis C- has followed up with Dr. Penn 7. Chronic diastolic heart failure- management with hemodialysis. Echocardiogram in October 2015 with diastolic heart failure. Moderate to severe pulmonary hypertension as well as moderate to severe tricuspid regurgitation/ mitral regurg. Echocardiogram repeated and pending. 8. Chronic anemia- may be secondary to renal failure. Stable at baseline. No need for transfusion at this time. We will continue to monitor. 9. Chronic lower extremity edema, with right than the left. 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 Doppler ultrasound negative for DVT. 10. RML mass like consolidation -discussed with Dr. Armijo -will observe for now as he will be no additional treatment for it as it is chronic. 11. Hypertension- better controlled. Continue current meds. 12. Lethargy- likely from opioids. No significant hypercapnea on ABG. Will hold opioids for now. DVT prophy: Heparin subcutaneous VS,Fishbone, I+O VS, Fishbone, I+O Laboratory Tests 12/26/16 05:35 Red Blood Count 4.06, Mean Corpuscular Volume 94.8, Mean Corpuscular Hemoglobin 27.1, Mean Corpuscular Hemoglobin Concent 28.6 L, Red Cell Distribution Width 19.5 H, Neutrophils (%) (Auto) 80.8 H, Lymphocytes (%) (Auto) 13.9 L, Monocytes (%) (Auto) 3.6, Eosinophils (%) (Auto) 0.2, Basophils (%) (Auto) 0.2, Neutrophils # (Auto) 9.5 H, Lymphocytes # (Auto) 1.8, Monocytes # (Auto) 0.4, Eosinophils # (Auto) 0.0, Basophils # (Auto) 0.0, Calcium Level 8.6 L, Aspartate Amino Transf (AST/SGOT) 30, Alanine Aminotransferase (ALT/SGPT) 13, Alkaline Phosphatase 140 H, Total Bilirubin 0.4, Total Protein 6.3 L, Albumin 1.5 L Vital Signs Date Time Temp Pulse Resp B/P (MAP) Pulse Ox O2 Delivery O2 Flow Rate FiO2 12/26/16 12:15 Nasal Cannula 2.0 12/26/16 12:00 99.6 83 16 133/69 (90) 90 I&O- Last 24 Hours up to 6 AM 12/26/16 06:00 Intake Total 450 ml Output Total 2250 ml Balance -1800 ml REYES BLANTON MD Dec 26, 2016 15:35
[2016-12-26 17:16] VITALS: BP 107/55
--- NOTE | 2016-12-26 18:10 | IPN ---
DATE: 12/26/2016 SUBJECTIVE: Patient was seen and examined at the bedside today morning. She had just finished her breakfast. Patient is slightly sleepy at this time. She got an extra session of ultrafiltration done yesterday. She tolerated the ultrafiltration well. Patient is hemodynamically stable. REVIEW OF SYSTEMS: Patient is sleepy at this time, unable to provide any review of systems but she is not in any apparent distress at this time and she is hemodynamically stable. OBJECTIVE: Vital signs: Temperature is 99.2 degrees Fahrenheit, blood pressure is 111/62, pulse is 76, respiratory rate of 16, saturating 94% on nasal cannula at 2 liters. Intake and output: The chest tube drainage yesterday was 380 mL, it is 20 mL so far today since overnight. Weight in the bed scale is 40.8 kg. PHYSICAL EXAMINATION: GENERAL: Patient is sleepy, but she is oriented times three laying in bed. No apparent distress. HEAD AND NECK: Extraocular muscles intact. Pupils equally round and reactive to light. Mucous membranes are moist. Neck is supple. There is slightly elevated jugular venous distention (JVD). CARDIOVASCULAR: S1, S2, regular rate. No murmur, rub, or gallop. Patient has 2+ pitting tender edema of the bilaterally lower extremities. She has edema of her thighs as well. RESPIRATORY: Patient at bed time decreased breath sounds at the right base, and she has decreased breath sounds on the left base as well with mild crepitations on deep inspiration. Patient has a pigtail catheter on the left pleural cavity. ABDOMEN: Soft. Positive bowel sounds. Nontender. No ascites. No organomegaly. MUSCULOSKELETAL: As mentioned above, patient has tender edema of the bilateral lower extremities, 2+ on the right side, 1+ on the left side. She has 1+ edema of the bilateral upper extremities as well. CENTRAL NERVOUS SYSTEM: No focal deficit. She follows commands. Power is 5/5 in bilateral upper extremities. LABORATORY REVIEW: CBC showed a WBC 11.7, hemoglobin is 11, platelets are 218. BMP showed sodium 138, potassium 4.9, chloride 101, bicarbonate 25, BUN 33, creatinine is 3.9. Lactic acid 1.3, calcium 8.6, albumin is 1.5. Microbiology: Sputum culture is growing Klebsiella pneumoniae. Blood cultures are pending. IMAGING: Chest x-ray done today morning showed chronic interstitial changes left lower lobe atelectasis and infiltrate and increasing right pleural effusion. CURRENT MEDICATIONS: Patient's current medications were all reviewed by me. She has been started on Rocephin 1 gram IV every 24 hours. Percocet has been stopped. There is no other change in the medications today as compared with yesterday. ASSESSMENT: 81-year-old female with past medical history of end-stage renal disease, on hemodialysis, chronic longstanding hypertension, recurrent pleural effusion, admitted at this time because of hypertensive urgency and shortness of breath along with left-sided pleural effusion. PLAN: 1. End-stage renal disease, on hemodialysis. Patient's regular dialysis days are Friday, , Friday. She got extra session of ultrafiltration yesterday, however she will be dialyzed again according to her regular schedule and we shall try to remove another 2 liters of fluid with hemodialysis session. 2. Left-sided pleural effusion. The patient has a left-sided pigtail catheter. As per documentation, patient has transudative fluid and aggressive hemodialysis and ultrafiltration was recommended. 3. Klebsiella pneumoniae in sputum culture. Patient has been started on IV Rocephin 1 gram IV daily. 4. Hypertension. Blood pressure is acceptable at this time. Continue current antihypertensive regimen. 4. Anemia and end-stage renal disease. Patient's hemoglobin is 11 at this time. Continue current dose of Aranesp 100 mcg IV with hemodialysis.
[2016-12-26 19:52] VITALS: BP 107/58
[2016-12-26] MEDS: PANTOPRAZOLE 40MG TAB (PROTONIX) PO SCH (20:58)
[2016-12-26] MEDS: **NOTE PATIENT COMMENT** MISC XX SCH (21:18)
--- NOTE | 2016-12-26 22:09 | IPN ---
DATE: 12/26/2016 This morning I found Ms. Hi somnolent and with a much different mental status than she has had before. Furthermore she was guppy breathing and looking as if she was actually struggling. Nursing staff informed me that she was given two Percocets along with a 10 mg Ambien last night. I asked them to stop the Ambien and obtain a blood gas. Her vital signs show a T-max of 99.9 with a heart rate that ranges between 85 and 76 in a sinus rhythm, respiratory rate of 18 to 22 without the use of accessory muscles, but breathing with very shallow breaths. She is 94% saturated on 2 liters nasal cannula and her blood pressure is 111/62 to 133/69. Her intake and output over the past 24 hours has been recorded as 360 in and 2280 for a negativity of 20 mL. 2000 mL were taken off with hemodialysis yesterday and she had 380 mL out of the chest tube catheter. In the last 8 hours she has only had 30 mL out the chest tube catheter. Her weight today is 40.8 kg compared to 42.5 kg yesterday. On physical examination her breath sounds are very shallow. I hear rhonchi throughout both lungs. Percussion note is full to the diaphragm. Cardiac exam shows a tachycardia without murmurs, clicks, gallops or rubs. I cannot feel her PMI. S1, S2 are normal. Abdomen is soft and nontender. Bowel sounds are positive. There is no hepatomegaly. Extremities show 3+ pretibial edema on the right and 2+ on the left. There is no calf tenderness than I can elicit. Her neck is supple. There is no jugular venous distention. No subcutaneous emphysema. Trachea is midline. Mouth shows her mucous membranes to be pink and moist. Lips and commissures are without lesions. Eyes show her pupils to be equal, reactive. Extraocular muscles intact. Sclera anicteric. Neuro shows gross motor and gross sensation intact. Cranial nerves II through XII intact. Psychiatric shows her to be somnalent. Her white count today is up to 11.7 with a hemoglobin and hematocrit of 11.0 and 38.5. Platelet count is 218 and differential shows 80% neutrophils, 30% lymphocytes, 3% monocytes. There are no immature forms, no toxic granulations. Her electrolytes today are normal with BUN and creatinine of 33 and 3.98 after dialysis yesterday. Lactic acid is 1.3 with a glucose of 55. She was being given oral supplementation for her glucose. Magnesium is 2.2 with an albumin of 1.5. Her JACOB screen has come back negative. Cytology and cell block are negative for malignancy. Her chest x-ray which I asked to be done portably shows pleural effusion on the right side. The left side cleared. She has residual atelectasis and/or infiltrative changes in the left lower lobe where the chest tube catheter is. Her blood gases show a pH of 7.34, a pCO2 of 45 and a pO2 of 65 with a base excess of -1.5. IMPRESSION: 1. Recurrent left and right-sided pleural effusions, left greater than right, transudative and normal glycemic. 2. Hypoalbuminemia. 3. Renal failure requiring dialysis. 4. Hypertension. 5. History of hepatitis C. 6. Diastolic congestive heart failure. 7. Chronic anemia. 8. Atelectasis middle lobe, possible right middle lobe syndrome. 9. Somnolence. Possibly secondary to Ambien and/or Percocet. PLAN AND DISCUSSION: I have asked that her Ambien and Percocet be held. As noted above, I obtained a portable chest x-ray which was discussed above as were her blood gases. I am gratified she only put out 30 mL in the last 8 hours from her chest tube catheter. Hopefully that is not kinked. We will follow her chest x-rays. She is again going for dialysis today. As she has plenty of blood pressure, I encouraged aggressive dialysis.
[2016-12-26 23:59] VITALS: BP 110/56
[2016-12-27] MEDS: LEVALBUTEROL 1.25 MG/0.5 ML CONCENTRATE NEB NEB SCH ×2 (01:07→07:13)
[2016-12-27 04:00] VITALS: BP 118/64
[2016-12-27] MEDS: HEPARIN SOD (PORCINE) 5000 UNITS/ML VIAL SC SCH (05:43)
[2016-12-27] MEDS: SLF 3 ML SYR IV SCH (05:44)
[2016-12-27 05:49] LABS: ADD MANUAL DIFFER YES; MEAN CORPUSCULAR HEMOGLOBIN 27.7 pg (27.0-33.0); MEAN CORPUSCULAR HGB CONC 29.2 g/dl (32.0-36.5); MEAN CORPUSCULAR VOLUME 94.9 fl (80.0-96.0); PLATELET COUNT, AUTOMATED 220 k/mm3 (150-450); RED CELL DISTRIBUTION WIDTH 19.6 % (11.5-14.5); WHITE BLOOD COUNT 11.8 K/mm3 (4.0-10.0)
[2016-12-27 06:06] LABS: ALBUMIN 1.3 GM/DL (3.2-5.2); ALBUMIN/GLOBULIN RATIO 0.27 (1.00-1.93); BILIRUBIN,TOTAL 0.4 MG/DL (0.2-1.0); CALCIUM LEVEL 9.1 MG/DL (8.8-10.2); CREATININE FOR GFR 2.79 MG/DL (0.55-1.02); GLOMERULAR FILTRATION RATE 17.3 (>32); MAGNESIUM LEVEL 2.5 MG/DL (1.8-2.4); POTASSIUM SERUM 4.5 MEQ/L (3.5-5.1); TOTAL PROTEIN 6.1 GM/DL (6.4-8.2)
[2016-12-27 06:47] LABS: ANISOCYTOSIS 2+; HYPOCHROMASIA 3+
[2016-12-27 08:00] VITALS: BP 115/59
--- NOTE | 2016-12-27 08:25 | REP ---
Portable chest, 07:56 a.m., single AP view, patient sitting: There is a left pigtail pleural drainage catheter, unchanged. There is a small left pleural effusion. There is a large right pleural effusion and an infiltrate inferiorly in the right lung. These are unchanged. Cardiomegaly is again identified, unchanged. There is a vascular stent in the superior mediastinum is unchanged. Old fracture of the right humeral head and neck is unchanged. Impression: No significant interval change. Signed by Jaguar Suárez MD 12/27/2016 08:16 A
[2016-12-27] MEDS: LIDOCAINE 5% (LIDODERM) PATCH TD SCH (08:32)
[2016-12-27] MEDS: MIRALAX *UNIT DOSE* 17GM PACKET PO SCH (08:32)
[2016-12-27] MEDS: (RENVELA) SEVELAMER **CARBONate** 800 MG TAB PO SCH (08:32)
[2016-12-27 08:33] VITALS: BP 115/59
[2016-12-27] MEDS: DOCUSATE SODIUM 100 MG CAP PO SCH (08:33)
[2016-12-27] MEDS: METOPROLOL SUCC (TopROL XL) 50MG **XL** TAB PO SCH (08:33)
[2016-12-27] MEDS: VITAMIN D 1,000 INTERNATIONAL UNITS TABLET PO SCH (08:33)
[2016-12-27] MEDS: LISINOPRIL 10 MG TAB PO SCH (08:33)
[2016-12-27] MEDS: amLODIPine 10 MG TAB PO SCH (08:33)
[2016-12-27] MEDS: SERTRALINE HCL 25 MG TABLET PO SCH (08:34)
[2016-12-27] MEDS ORDERED: MORPHINE SULF IN 0.9% NACL 100 MG in APPROPRIATE DILUENT 1 EA IV SCH ×2 (10:45)
[2016-12-27] MEDS ORDERED: SCOPOLAMINE 1.5 MG TRANSDERMAL TOP SCH (11:00)
[2016-12-27] MEDS ORDERED: NALOXONE INJ 0.4 MG/1 ML VIAL (J2310) IV STA (11:06)
[2016-12-27] MEDS ORDERED: MORPHINE 2 MG/ML 1ML SYRINGE IV PRN (11:45)
[2016-12-27] MEDS ORDERED: MORPHINE 2 MG/ML 1ML SYRINGE IV ONE (14:30)
--- NOTE | 2016-12-27 16:47 | IPNPDOC ---
Text Note Date of Service The patient was seen on 12/27/16. NOTE Subjective: Pt was feeling tired today. Pt and decided to go the comfort route and wants to stop HD and all the other medications. 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 She was given narcan and was AAOx3 when she made the decision. Objective: Vitals: (see below) General: No acute distress, laying comfortably in chair. HEENT: Moist mucous membranes. Neck: No JVD or lymphadenopathy. Cardiac: RRR, No murmurs. Pulm: Coarse crackles L>R. pigtail Catheter removed. No bleeding. Mild rhonchi on right. Abd: NT/ND + BS Ext: 1-2 + pitting edema BLE R>L. Distal pulses intact. Alert and Oriented x 3. Good insight and judgement. Labs (see below) Images: CT Chest 12/22/16 IMPRESSION: 1. Large left pleural effusion. Consolidation at the left lung base. 2. Small to moderate right pleural effusion. 3. Mass like consolidation noted in the right middle lobe containing air bronchograms, malignancy is not excluded. 4. Diffuse abdominal ascites. 5. Compression fractures of T2, T8, T9, T11 and L1 vertebral bodies. 6. Additional findings as above. CXR 12/24/16 Pigtail drainage catheter is again seen in the left lower hemithorax. There are again bilateral infiltrates and effusions with a decreased amount of left pleural fluid noted. Cardiomediastinal silhouette and the remainder of the study appear unchanged. Assessment/Plan 1. Recurrent bilateral pleural effusions- with recurrent drainage. Status post pigtail catheter. 2. Dyspnea with associated hypoxia- 3. Pneumonia - Klebsiella. 4. End stage renal disease on hemodialysis. 5. History of depression 6. Chronic hepatitis C 7. Chronic diastolic heart failure 8. Chronic anemia 9. Chronic lower extremity edema 10. RML mass like consolidation 11. Hypertension Pt made FREIGHT ENGINEER. Hospice to see patient Friday. VS,Maddiee, I+O VS, Jairobone, I+O Laboratory Tests 12/27/16 05:32 Red Blood Count 3.53 L, Mean Corpuscular Volume 94.9, Mean Corpuscular Hemoglobin 27.7, Mean Corpuscular Hemoglobin Concent 29.2 L, Red Cell Distribution Width 19.6 H, Calcium Level 9.1, Aspartate Amino Transf (AST/SGOT) 22, Alanine Aminotransferase (ALT/SGPT) 12, Alkaline Phosphatase 117, Total Bilirubin 0.4, Total Protein 6.1 L, Albumin 1.3 L Vital Signs Date Time Temp Pulse Resp B/P (MAP) Pulse Ox O2 Delivery O2 Flow Rate FiO2 12/27/16 12:15 20 12/27/16 11:27 Nasal Cannula 2.0 12/27/16 08:33 84 115/59 12/27/16 08:00 98.6 96 I&O- Last 24 Hours up to 6 AM 12/27/16 06:00 Intake Total 170 ml Output Total 1925 ml Balance -1755 ml REYES BLANTON MD Dec 27, 2016 16:47
--- NOTE | 2016-12-27 18:37 | IPN ---
DATE: 12/27/2016 SUBJECTIVE: The patient was seen and examined at the bedside today morning. The patient's was also present at the bedside. The patient was dialyzed yesterday. However, she became hypotensive at the end of dialysis. The patient is clinically not doing well at this time. She is not eating well. Her eyes are closed. She is oriented times two at this time, and the patient is not interested in any more hemodialysis or further medical care at this time. The patient's was also present at the bedside, and he also agrees that the patient is clinically deteriorating. She is not doing well. He thinks that the patient is actively dying at this time, and he wants to discontinue all the current care and make her comfortable only. REVIEW OF SYSTEMS: The patient is unable to provide any reliable review of systems. She is oriented times two. She is very weak and cachectic. She is drowsy at this time. OBJECTIVE: VITAL SIGNS: Temperature is 98.6 degrees Fahrenheit, blood pressure is 115/59, pulse is 84, respiratory rate of 22, saturating 96% on nasal cannula at two liters. INTAKE AND OUTPUT: The output from the chest tube since overnight is 15 mL. Ultrafiltration with hemodialysis was done yesterday and total ultrafiltration (UF) was 1.9 liters. Weight in the bed scale is 37.5 kg. PHYSICAL EXAMINATION: GENERAL: The patient is drowsy, sleepy, oriented times two, lying in bed. HEAD/NECK: The patient is weak and cachectic. She has temporal wasting. Mucous membranes are moist. Neck is supple. There is no jugular venous distention (JVD). CARDIOVASCULAR: S1, S2. Regular rate. No murmur, rub, or gallop. The patient has 2+ edema of the bilateral lower extremities, even up to thighs. RESPIRATORY: The patient has decreased breath sounds in the right base. She has decreased breath sounds at the left base with some crepitations on deep inspiration. She has a left-sided pigtail catheter. ABDOMEN: Soft. Positive bowel sounds. Nontender. No ascites. No organomegaly. MUSCULOSKELETAL: The patient has tender edema of the bilateral lower extremities. Otherwise no clubbing or cyanosis. CENTRAL NERVOUS SYSTEM (HEADING AND PRIMING OPERATOR): The patient is oriented times two. No focal deficit. She follows commands at this time. PSYCHIATRIC: The patient is depressed, weak, and tired. She wants to stop all the medical treatment at this time. LABORATORY DATA: CBC showed a WBC of 11.8, hemoglobin 9.8, platelets are 220. BMP showed sodium 140, potassium 4.5, chloride 101, bicarbonate 29, BUN 24, creatinine 2.7, and glucose is 66. Albumin 1.3. CURRENT INPATIENT MEDICATIONS: The patient's medications were all reviewed by me. As requested by patient herself and her , all the medications have been stopped. The patient has been started on morphine drip and scopolamine patch. ASSESSMENT: 81-year-old female with past medical history of end-stage renal disease on hemodialysis, chronic longstanding hypertension, recurrent pleural effusions, admitted this time because of hypertensive urgency and shortness of breath with left-sided pleural effusion. PLAN: 1. End-stage renal disease: The patient was dialyzed yesterday, but from now on, the patient does not want to do any more dialysis. 2. Left-sided pleural effusion: The patient has a pigtail catheter at this time. The patient does not want any aggressive care at this time. Suctioning and further fluid removal from the left-sided catheter will be stopped now. 3. Goals of care: The patient's at the bedside and she herself together decided to stop all the current medical treatment, stop dialysis, and make her comfort measures only. The patient is already DO NOT RESUSCITATE (DNR). Plan of care was discussed with the patient's RN and with the hospitalist, Dr. Cliff Alvarez.
--- NOTE | 2016-12-27 20:56 | IPN ---
DATE: 12/27/2016 I walked in this morning, I was told by the nursing staff that she had been made COMFORT MEASURES ONLY. My intent was nonetheless to remove the catheter as it is no longer draining and her chest x-ray shows the left pleural effusion resolved. She has undergone intensive dialysis and it seems to have worked. She is somnolent today, but able to answer questions and cooperate by positioning herself to remove her catheter. I suspect that she is somnolent secondary to medications. As I was not part of the scene or discussion I have just asked the hospitalist to make sure that is exactly what they want to happen. Her vital signs show a T-max of 98.0 with a heart rate that ranges between 84 and 77 in a sinus rhythm. Respiratory of 16 to 22 without the use of accessory muscles who is 96% saturated on 2 liters nasal cannula and her blood pressure is 115/59 to 118/64. Her intake and output over the past 24 hours has been recorded as 260 in and 1930 out for a negativity of 1600 mL. She has only taken in 200 mL in by mouth intake. 1900 mL was taken out from dialysis yesterday and she only put 30 mL out of the chest tube yesterday and 15 this morning. Weight today is 37.5 kg compared to 40.8 kg yesterday. On physical examination, her left lung shows good air entry. Her right lung shows decreased breath sounds of the right lower base. Percussion note is full to the diaphragm on the left, dull on the right at the very base. Cardiac exam is without murmurs, clicks, gallops or rubs. I cannot feel her point of maximal impulse (PMI). S1 and S2 are normal. Abdomen is soft and nontender. Bowel sounds are positive. There is no hepatomegaly. No costovertebral angle (CVA) tenderness. Extremities still show the pretibial edema, but now it looks like 2+ on the left and 1+ on the right. Her skin is more crinkly indicating that there has been a good diminution of her edema. Skin is warm, dry and perfused without cyanosis or mottling including that of the nail beds and the knees. Neck is supple. There is no jugular venous distention. No subcutaneous emphysema. Trachea is midline. Mouth shows her mucous membranes to be pink and moist. Lips and commissures without lesions. No thrush. Eyes show her pupils to be equal, reactive. Extraocular muscles intact. Sclera anicteric. Neuro shows II through XII grossly intact along with gross motor and gross sensation intact. Gait of course is not tested. Psychiatric shows her to be somnolent, but can awaken and follow instructions. White count today is 11.8 with a hemoglobin and hematocrit of 9.8 and 33.5. Platelet count is 220 and differential shows 84% neutrophils, 13% lymphocytes, 3% monocytes. There are no immature forms. No toxic granulations. Her electrolytes are normal with a BUN and creatinine of 24 and 2.79 with a glucose of 66 and a calcium of 9.1. Magnesium is 2.5 with an albumin of 1.3. Her chest x-ray today done portably shows the lung fully expanded to the chest wall. Left costophrenic angle is clear. I see no infiltrates on the left side. Her right side still shows some costophrenic angle blunting with what looks to be some residual compression. There is no subcutaneous emphysema and there is no midline shift. IMPRESSION: 1. Recurrent right and left sided pleural effusions with the left greater than the right, transudative and normal glycemic. 2. Resolved left pleural effusion with minimal output from the indwelling catheter. 3. Hypoalbuminemia. 4. Renal failure requiring dialysis. 5. Hypertension. 6. History of hepatitis C. 7. Diastolic congestive heart failure. 8. Chronic anemia. 9. Atelectasis middle lobe, possibly right middle lobe syndrome. 10. Somnolence probably secondary to medications. PLAN AND DISCUSSION: I will remove her pigtail catheter today. As noted in the discussion I have spoken to the hospitalist service with regard to the COMMERCIAL ELECTRICIAN strategy. I think that we have accomplished what we set out to accomplish with regard to the dialysis and drying her out as her left pleural effusion is not longer draining. Right pleural effusion is small and does not need draining at this point in time.
[2016-12-27] MEDS: MORPHINE 2 MG/ML 1ML SYRINGE IV PRN (21:47)
[2016-12-28] MEDS: MORPHINE 2 MG/ML 1ML SYRINGE IV PRN ×2 (00:52→04:34)
[2016-12-28] MEDS: MORPHINE 4 MG/ML 1ML SYRINGE IV PRN ×3 (10:30→16:30)
[2016-12-28] MEDS ORDERED: MORPHINE 2 MG/ML 1ML SYRINGE IV PRN (11:45)
--- NOTE | 2016-12-28 11:50 | IPNPDOC ---
Text Note Date of Service The patient was seen on 12/28/16. NOTE Subjective: Pt of increased back pain and requested additional pain medications. Objective: Vitals: (see below) General: No acute distress, laying comfortably in chair. HEENT: Moist mucous membranes. Neck: No JVD or lymphadenopathy. Cardiac: RRR, No murmurs. Pulm: Coarse crackles L>R. pigtail Catheter removed. No bleeding. Mild rhonchi on right. Abd: NT/ND + BS Ext: 1-2 + pitting edema BLE R>L. Distal pulses intact. Alert and Oriented x 3. Good insight and judgement. Labs (see below) Images: CT Chest 12/22/16 IMPRESSION: 1. Large left pleural effusion. Consolidation at the left lung base. 2. Small to moderate right pleural effusion. 3. Mass like consolidation noted in the right middle lobe containing air bronchograms, malignancy is not excluded. 4. Diffuse abdominal ascites. 5. Compression fractures of T2, T8, T9, T11 and L1 vertebral bodies. 6. Additional findings as above. CXR 12/24/16 Pigtail drainage catheter is again seen in the left lower hemithorax. There are again bilateral infiltrates and effusions with a decreased amount of left pleural fluid noted. Cardiomediastinal silhouette and the remainder of the study appear unchanged. Assessment/Plan 1. Recurrent bilateral pleural effusions- with recurrent drainage. Status post pigtail catheter. 2. Dyspnea with associated hypoxia- 3. Pneumonia - Klebsiella. 4. End stage renal disease on hemodialysis. 5. History of depression 6. Chronic hepatitis C 7. Chronic diastolic heart failure 8. Chronic anemia 9. Chronic lower extremity edema 10. RML mass like consolidation 11. 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 Hospice to see patient Friday. VS,Fishbone, I+O VS, Fishbone, I+O Vital Signs Date Time Temp Pulse Resp B/P (MAP) Pulse Ox O2 Delivery O2 Flow Rate FiO2 12/28/16 04:44 14 Nasal Cannula 2.0 12/27/16 08:33 84 115/59 12/27/16 08:00 98.6 96 I&O- Last 24 Hours up to 6 AM 12/28/16 05:59 Intake Total 0 ml Output Total 15 ml Balance -15 ml REYES BLANTON MD Dec 28, 2016 11:50
[2016-12-28] MEDS: MORPHINE 10MG/0.5ML ORAL CONCENTRATE SOLUTION U/D SL PRN ×2 (18:08→21:17)
[2016-12-29] MEDS: MORPHINE 10MG/0.5ML ORAL CONCENTRATE SOLUTION U/D SL PRN ×3 (02:04→13:09)
--- NOTE | 2016-12-29 11:55 | IPNPDOC ---
Text Note Date of Service The patient was seen on 12/29/16. NOTE Subjective: Pain well-controlled. Patient has shallow breathing. Objective: Vitals: (see below) General: No acute distress, laying comfortably in bed HEENT: Moist mucous membranes. Neck: No JVD or lymphadenopathy. Cardiac: RRR, No murmurs. Pulm: Coarse crackles L>R. Abd: NT/ND + BS Ext: 1-2 + pitting edema BLE R>L. Distal pulses intact. Lethargic Labs (see below) Images: CT Chest 12/22/16 IMPRESSION: 1. Large left pleural effusion. Consolidation at the left lung base. 2. Small to moderate right pleural effusion. 3. Mass like consolidation noted in the right middle lobe containing air bronchograms, malignancy is not excluded. 4. Diffuse abdominal ascites. 5. Compression fractures of T2, T8, T9, T11 and L1 vertebral bodies. 6. Additional findings as above. CXR 12/24/16 Pigtail drainage catheter is again seen in the left lower hemithorax. There are again bilateral infiltrates and effusions with a decreased amount of left pleural fluid noted. Cardiomediastinal silhouette and the remainder of the study appear unchanged. Assessment/Plan 1. Recurrent bilateral pleural effusions- with recurrent drainage. Status post pigtail catheter. 2. Dyspnea with associated hypoxia- 3. Pneumonia - Klebsiella. 4. End stage renal disease on hemodialysis. 5. History of depression 6. Chronic hepatitis C 7. Chronic diastolic heart failure 8. Chronic anemia 9. Chronic lower extremity edema 10. RML mass like consolidation 11. 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 Hospice to see patient Friday. VS,Fishbone, I+O VS, Fishbone, I+O Vital Signs Date Time Temp Pulse Resp B/P (MAP) Pulse Ox O2 Delivery O2 Flow Rate FiO2 12/29/16 06:25 12 Nasal Cannula 3.0 12/27/16 08:33 84 115/59 12/27/16 08:00 98.6 96 I&O- Last 24 Hours up to 6 AM 12/29/16 06:00 Intake Total 60 ml Output Total 0 ml Balance 60 ml REYES BLANTON MD Dec 29, 2016 11:55
--- NOTE | 2016-12-30 14:18 | DS.PDOC ---
Discharge Summary General Date of Admission Dec 22, 2016 at 13:49 Date of Discharge 12/29/16 Attending Physician: REYES BLANTON MD Specialist/Consultants Involve: JUAN MIGUEL MATTHEW MD Specialist/Consultants Involve Discharge Summary PROCEDURES PERFORMED DURING STAY: Pigtail catheter, Hemodialysis ADMITTING/DISCHARGE DIAGNOSES: 1. Acute hypoxic respiratory failure secondary to why I am overload, recurrent bilateral pleural effusions, pneumonia 2. End-stage renal disease on hemodialysis, patient refusing hemodialysis 3. Chronic hepatitis C 4. Diastolic heart failure 5. Right middle lobe masslike consolidation 6. Hypertension 7. Depression 8. Chronic back pain 9. Chronic compression fractures of T2, 8, 9, 11, L1 COMPLICATIONS/CHIEF COMPLAINT: Recurrent Pleural Effusions Left And Rt. HISTORY OF PRESENT ILLNESS/HOSPITAL COURSE: This 81-year-old female with an extensive past medical history including diastolic heart failure, end-stage renal disease on hemodialysis who presented complaining of dyspnea and found to have recurrent bilateral pleural effusions. Patient was evaluated by thoracic surgery and had a pigtail catheter placed for drainage of the pleural effusions. Nephrology was also consulted and patient underwent hemodialysis in the hopes of removing additional fluids. Over the course of hospitalization, her clinical status deteriorated. Her chronic lower back pain has progressively worsened and the patient began to have a progressive productive cough secondary to Klebsiella pneumonia. Patient was treated with IV antibiotics. Given her significant comorbidities, her progressive deterioration, and her prior consideration for comfort measures the patient and the family decided to seek comfort measures only. The patient on 12/29/16. ALLERGIES: Please see below. TIME SPENT ON DISCHARGE: Greater than 30 minutes. Vital Signs/I&Os Vital Signs Date Time Temp Pulse Resp B/P (MAP) Pulse Ox O2 Delivery O2 Flow Rate FiO2 12/29/16 13:09 10 Nasal Cannula 2.0 12/27/16 08:33 84 115/59 12/27/16 08:00 98.6 96 I&O- Last 24 Hours up to 6 AM 12/30/16 06:00 Intake Total 0 ml Balance 0 ml Microbiology Microbiology 12/26/16 Blood Culture - Preliminary, Resulted No Growth after 72 hours. All specime... 12/26/16 Blood Culture - Preliminary, Resulted No Growth after 72 hours. All specime... 12/23/16 Acid Fast Stain - Final, Resulted 12/23/16 Mycobacterial Culture, Resulted Pending 12/23/16 Fungal Smear - Final, Resulted 12/23/16 Fungal Culture, Resulted Pending 12/23/16 Gram Stain - Final, Complete 12/23/16 Body Fluid Culture - Final, Complete 12/23/16 Anaerobic Culture - Final, Complete 12/24/16 Gram Stain - Final, Complete 12/24/16 Sputum Culture - Final, Complete Klebsiella Pneumoniae Discharge Medications Scheduled Amlodipine Besylate (Amlodipine Besylate) 10 Mg Tab, 10 MG PO DAILY, (Reported) Lisinopril (Lisinopril) 10 Mg Tab, 10 MG PO BID, (Reported) Metoprolol Succinate (Metoprolol Succinate ER) 50 Mg Tab, 50 MG PO DAILY, ( Reported) Pantoprazole Sodium (Pantoprazole Sodium) 40 Mg Tab, 40 MG PO QHS, (Reported) Sevelamer Carbonate (Renvela) 800 Mg Tab, 1,600 MG PO WM, (Reported) Vitamin D (Vitamin D) 1,000 Unit Cap, 1,000 UNIT PO DAILY, (Reported) Scheduled PRN Acetaminophen/Hydrocodone (Hydrocodone/Acetaminophen 10-325 mg) 1 Tab Tab, 1 TAB PO Q4H PRN for PAIN, (Reported) Lactulose (Lactulose) 10 Gm/15 Ml Mary, 10 ML PO DAILY PRN for CONSTIPATION, ( Reported) Megestrol Acetate (Megace Oral) 40 Mg/Ml Ivana, 400 MG PO DAILY PRN for APPETITE, (Reported) Zolpidem Tartrate (Ambien) 10 Mg Tab, 10 MG PO QHS PRN for INSOMNIA, (Reported) Allergies Coded Allergies: Pregabalin (Unverified Allergy, Unknown, TREMORS, 03/06/16) REYES BLANTON MD Dec 30, 2016 14:18
[2017-01-02 12:40] LABS: RHEUMATOID FACTOR, BODY FLUID <10
[2017-01-02 12:41] LABS: RHEUMATOID FACTOR FLUID SOURCE PLEURAL
== END 2016-12-29 16:10 | disposition expired | DRG 186 ==
LOC: M ED 09:53 → M ED INP 13:49 → M ICU 16:55 → M PCU 12-24 17:49 → M MSPAV 12-27 13:56
PROVIDERS: ADMIT Hospitalist; ATTEND Internal Medicine
PROC: 0W9B30Z Drainage of Left Pleural Cavity with Drainage Device, Percutaneous Approach (ICD-10-PCS; principal; 2016-12-23)
PROC: 5A1D00Z (ICD-10-PCS; 2016-12-24)
DX: J90 Pleural effusion, not elsewhere classified (principal); N18.6 End stage renal disease; J15.0 Pneumonia due to Klebsiella pneumoniae; J98.19 Other pulmonary collapse; I50.32 Chronic diastolic (congestive) heart failure; Z94.0 Kidney transplant status; R45.851 Suicidal ideations; F32.1 Major depressive disorder, single episode, moderate; R09.02 Hypoxemia; Z51.5 Encounter for palliative care; D63.1 Anemia in chronic kidney disease; E88.09 Other disorders of plasma-protein metabolism, not elsewhere classified; I16.0 Hypertensive urgency; I11.0 Hypertensive heart disease with heart failure; M80.08XS Age-related osteoporosis with current pathological fracture, vertebra(e), sequela; Z99.81 Dependence on supplemental oxygen; Z82.49 Family history of ischemic heart disease and other diseases of the circulatory system; Z83.3 Family history of diabetes mellitus; Z80.8 Family history of malignant neoplasm of other organs or systems; Z85.820 Personal history of malignant melanoma of skin; Z98.51 Tubal ligation status; Z95.828 Presence of other vascular implants and grafts; Z92.21 Personal history of antineoplastic chemotherapy; Z96.643 Presence of artificial hip joint, bilateral; Z99.2 Dependence on renal dialysis; Z79.899 Other long term (current) drug therapy; Z88.8 Allergy status to other drugs, medicaments and biological substances